=== PATIENT | male | born 1940 | race Caucasian/White ===

== ENCOUNTER → 2020-09-22 11:51 | Outpatient (CLI) | payer MEDICARE, SELFPAY ==
--- NOTE | 2020-09-22 11:56 | XR_ITS ---
PROCEDURE: XR SACROILIAC JOINT BI MIN 3V CLINICAL INDICATION: RT HIP PAIN COMPARISON: No exams were available for comparison FINDINGS: The SI joints have an unremarkable appearance. There is some mild facet hypertrophic change at L4-L5 and S1. Suture lines are present in the mid pelvic region slightly toward the left. Other findings:None. IMPRESSION: Negative SI joints. Facet arthritic changes in the lower lumbar spine Dictated by: Dle Shrestha MD 09/22/2020 12:25 Del Shrestha MD in [place] 09/22/2020 12:25
--- NOTE | 2020-09-22 11:56 | XR_ITS ---
PROCEDURE: XR HIP RT 2-3V W/PELVIS CLINICAL INDICATION: RT HIP PAIN COMPARISON: No exams were available for comparison FINDINGS: Mild osteoarthritic changes are present involving both hips. No fracture or dislocation. No lytic or blastic change. Well-circumscribed calcification noted along the left greater trochanter and may be due to old fracture or ununited ossification center IMPRESSION: Mild degenerative change, no acute finding Dictated by: Del Shrestha MD 09/22/2020 12:24 Del Shrestha MD in [facility] 09/22/2020 12:24
== END ==
PROVIDERS: PCP Internal Medicine Adolescent Medicine; Visit Provider Internal Medicine Adolescent Medicine
DX: M25.551 Pain in right hip (principal)
CPT/HCPCS: 72202; 73502

== ENCOUNTER → 2020-10-18 13:53 | Outpatient (POV) | payer MEDICARE, SELFPAY ==
[2020-10-18 14:22] VITALS: BP 164/84; PULSE 54; RESP 18; O2SAT 99; BMI 27.1
--- NOTE | 2020-10-18 15:44 | HMH.PMCON ---
Assessment and Plan (1) Osteoarthritis of right hip Status: Chronic Category: Medical Code(s): M16.11 - Unilateral primary osteoarthritis, right hip (2) Right hip pain Status: Chronic Category: Medical Code(s): M25.551 - Pain in right hip - Assessment and plan all Dx Assessment and Plan for all problems:: Patient's pain is primarily in his right hip area. He does have x-ray notable for osteoarthritic changes on the right hip. We will see him back in the clinic after his injection for reevaluation of his symptoms. We will order the patient compounding cream to apply topically to the area. We will also schedule that injection 3 weeks out. We will give him prednisone 20 mg 1 tablet p.o. twice daily for 5 days. Risks and benefits of the procedure have been explained to the patient. Patient would like to proceed with the procedure. Possible side effects of corticosteroids have been discussed with the patient. Patient has been instructed to contact the clinic with any concerns before the next appointment. Dr. Jones has reviewed this note and agrees with this plan of care. This note was dictated using voice recognition software and make contain errors or omissions. HPI - Data of Consult Patient: new to practice Consult date: 10/18/20 Requesting Physician: Dejah Palafox APRN Primary Care Provider: John Gagnon MD - Consult Narrative Reason for consult: Right hip pain History of present illness: Mr. Mast is a 80 year old male who presents today for right hip pain. Patient says his pain has been ongoing for the last 8 months. He says the pain has progressively worsened. His pain is worse after prolonged walking. He says the pain radiates from the right low back into the right hip and right lateral thigh area. It does stop at the knee. He says that he has tried anti-inflammatory gel which is giving him about 30 to 40% relief, however, has not taken all the pain away. Patient walks approximately 1 mile every day and says his pain progressively worsens after walking. He has been taking anti-inflammatories by mouth as well. He says that this has not given him much relief. He has tried and failed conservative therapies of physical therapy in the past for greater than 6 weeks and continues with home stretching. He rates his pain a 7 out of 10 today to his hip. He has used ice and heat therapies as well with no relief. CC: Dejah Palafox APRN [facility] History I have reviewed the patient's past medical history: Yes Medical History: Reports:: Hypertension *Have you ever received a pneumonia vaccine?: Yes *Have you received a flu vaccine this season?: Yes Other Surgeries: Yes: No Previous Surgery - *Social History Smoking Status: Never smoker Alcohol Intake: never *Occupational Status:: retired Household Members: family *Travel in the last 8 weeks: None Family Hx:: No significant family history Review of Systems - Review of Systems Review of Systems General: No recent weight changes, no fever, no sleep disturbances Respiratory: No cough, no shortness of air, no recurring pulmonary infections Cardiovascular/peripheral vascular: No chest pain, no palpitations, no edema, no shortness of breath Gastrointestinal: No new onset incontinence, normal bowel movements reported Genitourinary: No new onset incontinence Musculoskeletal: Right hip pain with radiation into right lateral thigh Psychiatric: Normal mood/affect Neurological: [Denies weakness in extremities], [denies balance issues] Meds Home Medications Medication Instructions Recorded Confirmed Type bisoprolol 5 1 tab PO ONCE 09/05/17 History mg-hydrochlorothiazide 6.25 mg tablet Bisoprolol/Hydrochlorothiazide 1 each PO POSTTR 10/18/20 10/18/20 History [Bisoprolol-Hctz 2.5-6.25 mg Tb] Diclofenac Sodium [Diclofenac Sod 100 gm TP DAILY 10/18/20 10/18/20 History 100gm Topical Gel] Allergies Allergy/AdvReac Ty
== END ==
PROVIDERS: PCP Internal Medicine Adolescent Medicine; Visit Provider Clinical Nurse Specialist Family Health
DX: M16.11 Unilateral primary osteoarthritis, right hip (principal); M25.551 Pain in right hip
CPT/HCPCS: 99202; G0463

== ENCOUNTER → 2021-08-18 09:22 | Outpatient (POV) | payer MEDICARE, SELFPAY ==
[2021-08-18 09:34] VITALS: BP 131/56; PULSE 62; RESP 18; TEMP 36.4; O2SAT 98; BMI 27.3
--- NOTE | 2021-08-18 11:23 | P.CONS_ITS ---
[facility] Pain Management SOAP Note Subjective:: Patient is a pleasant 81-year-old male who presents today for follow-up. We have not seen this patient since October 18, 2020. Patient currently has osteoarthritis of the right hip. Today, patient is complaining of right hip pain that radiates down to his right leg and does not cross his right knee. This is worse with any prolonged sitting or walking. He does try to walk for about a mile every day and he cannot tolerate walking for longer. He takes Advil for pain he is also prescribed [place] 10 mg 4 times a day by Dr. Gagnon. He states that these medications are helping manage his pain. He takes the [place] only when he has severe pain. When we saw this patient in September, we had recommended a right hip intra-articular injection. Patient canceled this appointment. We did prescribe him oral steroids for about a week then we did not see him again until today. He rates his pain today as 7 out of 10. [facility] #[id number] with an active morphine equivalent of 40. Review of Systems: General: No recent weight changes, no fever, no sleep disturbances Respiratory: No cough, no shortness of air, no recurring pulmonary infections Cardiovascular/peripheral vascular: No chest pain, no palpitations, no edema, no shortness of breath Gastrointestinal: No new onset incontinence, normal bowel movements reported Genitourinary: No new onset incontinence Musculoskeletal: Right hip pain Psychiatric: [Normal mood/affect] Neurological: [Denies weakness in extremities], [denies balance issues] Objective:: Physical Exam: General: Alert and oriented x3, no acute distress, pleasant and cooperative, [on room air] Lungs: Respirations even and unlabored, symmetrical chest expansion Eyes: PERRL Musculoskeletal: Limited range of motion of the bilateral hips secondary to pain, worse on the right. Negative ANGEL, +Derrick's, +compression and distraction. Neurological: Speech clear, no gross sensory deficit Assessment:: Osteoarthritis of the bilateral hips Plan:: Patient has been having worsening bilateral hip pain, worse on the right, in the last couple of months. He is currently being managed with Advil and [place] 10 mg as needed. These are prescribed by Dr. Gagnon. Patient has tried and failed other conservative therapy such as oral medication and at home exercises for greater than 6 weeks. We will schedule the patient for a bilateral intra- articular hip injections. Risks and benefits of the procedure have been explained to the patient. Patient would like to proceed with the procedure. Patient has been instructed to contact the clinic with any concerns before the next appointment. Dr. Jones has reviewed this note and agrees with this plan of care. This note was dictated using voice recognition software and make contain errors or omissions. ADDENDUM: The patient called her clinic 15 minutes after he left. He canceled his injection. We will follow-up with this patient as needed. If the patient do decide to come back, we will schedule him again for bilateral intraarticulat hip injections. [facility] History Medical History: Reports:: Hypertension *Have you ever received a pneumonia vaccine?: Yes *Have you received a flu vaccine this season?: Yes Other Surgeries: Yes: No Previous Surgery - *Social History Smoking Status: Never smoker Alcohol Intake: never *Occupational Status:: retired Household Members: family *Travel in the last 8 weeks: None Family Hx:: No significant family history
== END ==
PROVIDERS: Visit Provider Student in an Organized Health Care Education/Training Program
DX: M16.0 Bilateral primary osteoarthritis of hip (principal)
CPT/HCPCS: 99212; G0463

== ENCOUNTER 2023-07-31 13:02 | Outpatient (CLI) | payer MEDICARE, SELFPAY ==
--- NOTE | 2023-07-31 13:07 | MR_ITS ---
FINAL REPORT CLINICAL HISTORY: LBP. right hip and leg pain COMPARISON: none FINDINGS: Multiplanar MR imaging of the lumbar spine was performed without contrast. On the sagittal T2-weighted images, disc degeneration is seen throughout.There is mild rightward curvature of the lumbar spine. The vertebral alignment is normal. There are endplate changes at several levels. No bony mass is identified. The conus has an unremarkable appearance. T12-L1: There is no significant canal stenosis or neuroforaminal narrowing. L1-2: An annular bulge is present with bilateral facet arthropathy and vertebral body osteophytes. There is a right foraminal disc protrusion. Moderate bilateral neuroforaminal narrowing. L2-3: An annular bulge is present with bilateral facet arthropathy and vertebral body osteophytes. Mild bilateral neuroforaminal narrowing. Mild central canal stenosis with AP diameter of the thecal sac measuring 7 mm in diameter. L3-4: An annular bulge is present with bilateral facet arthropathy and vertebral body osteophytes. Moderate bilateral neuroforaminal narrowing. Mild central canal stenosis with AP diameter of the thecal sac measuring 8 mm in diameter. L4-5: An annular bulge is present with bilateral facet arthropathy. Severe bilateral neuroforaminal narrowing. Mild central canal stenosis with AP diameter of the thecal sac measuring 9 mm in diameter. L5-S1: An annular bulge is present with bilateral facet arthropathy and vertebral body osteophytes. Severe right and moderate left neuroforaminal narrowing. Incidental note is made of a 4.0 cm infrarenal abdominal aortic aneurism. IMPRESSION: Multilevel degenerative disc disease and spondylosis as described. Central canal stenosis at L2-3,, L3-4, and L4-5. Infrarenal 4.0 cm abdominal aortic aneurism. Reviewed, Interpreted and Dictated by Ruben Marley III, MD Transcribed by Natasha Kern Authenticated and [facility]
== END 2023-07-31 23:59 ==
LOC: RAD 13:03
PROVIDERS: PCP Internal Medicine Adolescent Medicine; Visit Provider Orthopaedic Surgery Adult Reconstructive Orthopaedic Surgery
DX: M54.50 Low back pain, unspecified (principal)
CPT/HCPCS: 72148; 76376

== ENCOUNTER 2023-09-18 15:11 | Outpatient (POV) | payer MEDICARE, SELFPAY | END 2023-09-18 23:59 | disposition home or self-care (01) | LOC: SC 15:11 | PROVIDERS: PCP Internal Medicine Adolescent Medicine; Visit Provider Dermatology | DX: Z00.00 Encounter for general adult medical examination without abnormal findings (principal) ==

== ENCOUNTER 2023-10-17 09:33 | Outpatient (CLI) | payer MEDICARE, SELFPAY ==
[2023-10-17 09:38] VITALS: BMI 27.2
--- NOTE | 2023-10-17 09:47 | PC.NURSE ---
[id number]-collected labs via venipuncture stick in left ac with butterfly needle and witness from [facility]; to notify pt with results
[2023-10-17 10:11] LABS: Reticulocyte % (Auto) 1.6 % (0.9-3.2)
[2023-10-17 10:12] LABS: Basophils % 0.7 % (0.1-2.0); Eosinophils # 0.1 K/mm3 (0.0-0.4); Eosinophils % 1.8 % (0.1-12.0); Hematocrit 36.9 % (42.0-52.0); Hemoglobin 12.7 g/dL (14.1-18.0); Lymphocytes # 1.2 K/mm3 (0.7-4.5); Lymphocytes % 19.5 % (10-50); Mean Corpuscular HGB Conc 34.4 g/dL (31.8-35.4); Mean Corpuscular Hemoglobin 33.1 pg (27.0-31.2); Mean Corpuscular Volume 96.5 fl (80-94); Mean Platelet Volume 9.1 fl (7.4-10.4); Monocytes # 1.6 K/mm3 (0.1-1.0); Platelet Count 111 K/mm3 (142-424); Red Blood Count 3.83 M/mm3 (4.60-6.20); Red Cell Distribution Width 14.3 % (11.5-17.5)
[2023-10-17 10:15] LABS: Chloride 105 mmol/L (98-107); Sodium 137 mmol/L (136-145)
[2023-10-17 10:16] LABS: Potassium 3.9 mmoL/L (3.5-5.1)
[2023-10-17 10:18] LABS: Alanine Aminotransferase 28 U/L (12-78); Alkaline Phosphatase 57 U/L (38-126); Anion Gap 10.9 mEq/L (5-15); Aspartate Amino Transferase 44 U/L (17-59); Bilirubin,Total 0.8 mg/dl (0.2-1.3); Blood Urea Nitrogen 33 mg/dl (9-20); Carbon Dioxide 25 mmol/L (22.0-30.0); Creatinine Clearance Estimated 55 mL/min (50-200); Estimated Glomerular Filt Rate 58 ml/min (>60); GFR (African American) 70 ML/MIN (>60); Iron 89 ug/dL (49-181)
[2023-10-17 10:19] LABS: Albumin Level 4.1 g/dl (3.5-5.0); Albumin/Globulin Ratio 1.4 (1.1-1.8); Calcium 9.7 mg/dl (8.4-10.2); Glucose 151 mg/dl (74-100); Total Protein,Serum 7.1 g/dl (6.3-8.2)
[2023-10-17 10:28] LABS: Total Iron Binding Capacity 244 ug/dL (261-462)
[2023-10-17 10:39] LABS: MANUAL DIFFERENTIAL MANUAL DIFFERENTIAL (MANUAL DIFF)
[2023-10-17 10:57] LABS: Ferritin 173 ng/ml (17.9-464)
[2023-10-17 11:29] LABS: Lactate Dehydrogenase 210 U/L (313-618)
[2023-10-17 12:50] LABS: Eosinophils % 2 % (0-3); Lymphocytes % 40 % (10-50); Monocytes % 7 % (2-9); Neutrophils % 51 % (42-76); Platelet Estimate Slight Decrease; RBC Morphology Normal; Total Cells Counted 100
[2023-10-18 08:46] LABS: Haptoglobin 108 mg/dL (38-329)
== END 2023-10-17 09:50 | disposition home or self-care (01) ==
LOC: LAB 09:34 → INF 09:36
PROVIDERS: PCP Internal Medicine Adolescent Medicine; Visit Provider Internal Medicine Medical Oncology
DX: D64.9 Anemia, unspecified (principal); D69.6 Thrombocytopenia, unspecified
CPT/HCPCS: 36415; 80053; 82728; 83010; 83540; 83550; 83615; 85007; 85025; 85027; 85044; 86880

== ENCOUNTER 2023-11-30 12:11 | Observation (INO) | payer MEDICARE, SELFPAY ==
[2023-11-30] VITALS (10 sets, daily range): BP systolic 134–205; BP diastolic 62–92; PULSE 53–68; RESP 16–18; TEMP 36.4–36.8; O2SAT 86–97; BMI 26.6; BMI 27.0
--- NOTE | 2023-11-30 12:16 | ECG_ITS ---
APPROVED REPORT Exam: Resting ECG HR:64 bpm ECG Measurements Heart Rate 64 AXES QRSd 94 QRS 29 QT 430 T 55 QTc 440 Conclusion Atrial fibrillation with controlled response Electronically signed by : MARVIN GORDON, 11/30/2023 16:01:32
--- NOTE | 2023-11-30 12:18 | PC.NURSE ---
PT ROOM AIR SAT 86% ON ROOM AIR, O2 APPLIED 2L/NC
--- NOTE | 2023-11-30 12:21 | PC.NURSE ---
Called RT about VBG being sent up on the pt. CR
--- NOTE | 2023-11-30 12:27 | PC.NURSE ---
Dr. Pop at [facility] for pt eval
[2023-11-30 12:38] LABS: VBG HCO3 24.8 mmol/L (23-30); VBG Oxygen Saturation 59.8 % (50-70); VBG PCO2 40.9 mmol/L (35-51); VBG Total CO2 26.1 mmol/L (23-27)
[2023-11-30 12:39] LABS: Lactate Venous 2.6 mmol/L (0.4-2.0)
--- NOTE | 2023-11-30 12:42 | XR_ITS ---
FINAL REPORT CLINICAL HISTORY: soa, hypoxemia FINDINGS: SINGLE-VIEW CHEST There is moderate cardiomegaly. Patient is status post median sternotomy.. There are mild chronic changes at the bases. There is no pneumothorax. IMPRESSION: No acute cardiopulmonary process. Reviewed, Interpreted and Dictated by Jono Boyd MD Transcribed by Shaylee Perez Authenticated and [facility]
--- NOTE | 2023-11-30 12:46 | HMH.EDCP ---
Discharge Plan Disposition Patient Disposition: Admitted Clinical Impressions Clinical Impression: CHF exacerbation, Acute hypoxemic respiratory failure, Atrial fibrillation Discharge ED Provider: Lucien Pop HPI General Chief Complaint: Shortness of Breath/Dyspnea Stated Complaint: SOA, weakness Time Seen by Provider: 11/30/23 12:17 Mode of Arrival: Ambulatory Source of Information: Patient and Spouse Limitations: No Limitations Description of Symptoms (Recalled from ER Triage Doc. by RN): PT REPORTS ONGOING SHORTNESS OF BREATH, FATIGUE, LOSS OF APPETITE AND WEAKNESS X 3 WEEKS. PT HAS HAD MULTIPLE BLOOD PRESSURE MEDICATION CHANGES. History of Present Illness HPI narrative: Please note that above description of symptoms, in this electronic medical record under categorization of recalled from ER triage doctor by RN are reflective of an initial nursing assessment, however, is not reflective of my full history and physical exam that was personally taken and clarified. Consequentially, this preceding description of symptoms, which may include the patient's categorized chief complaint in the EMR, do not reflect my personal clinical impression, and the ultimate description of history of present illness and patient stated complaints should be deferred to this section of the note. Unless stated otherwise or congruent with this section of the note, additional signs, symptoms, or incongruence should be interpreted as inaccurate with my clinical impression. Related Data Home Medications ?Medication ?Instructions ?Recorded ?Confirmed diclofenac sodium 3 % topical gel 100 g topical DAILY pain 10/18/20 11/30/23 carvedilol 12.5 mg tablet 12.5 mg PO BID 11/30/23 11/30/23 Allergies Allergy/AdvReac Type Severity Reaction Status Date / Time No Known Allergies Allergy Verified 11/30/23 15:05 [facility] Disclaimer: The information contained in this section may have been updated after the patient was seen, as this information can be updated by other users. Medical History (Updated 11/30/23 @ 16:00 by Lucien Pop MD) Hypertension Congestive heart failure Surgical History (Updated 11/30/23 @ 15:20 by Marlen Lopez RN) H/O rotator cuff surgery History of open heart surgery History of colon resection Family History (Updated 11/30/23 @ 15:16 by Marlen Lopez RN) Other No significant family history Social History (Updated 11/30/23 @ 15:17 by Marlen Lopez RN) Smoking Status: Never smoker alcohol intake: never current occupational status: retired Travel in the last 8 weeks: None household members: family ROS Obtained: Yes All systems reviewed & no additional complaints except as documented Physical Exam General General appearance: alert and in distress (Mild respiratory distress with tachypnea) Neck Neck exam: Present trachea midline Chest Chest inspection: Present normal inspection and symmetric chest wall rise Respiratory Respiratory exam: Present normal lung sounds bilaterally (Decreased in lower lung combs); Absent respiratory distress, wheezes, stridor, accessory muscle use or prolonged expiratory phase Cardiovascular Cardiovascular exam: Present regular rate, normal rhythm and other (Pulses equal and symmetric in upper and lower extremities) Extremities Exam Extremities exam: Absent edema Neurological Exam Neurological exam: Present alert, oriented X3 and CN II-XII intact Skin Skin exam: Present warm and dry; Absent cyanosis, diaphoresis or pallor HEART Score HEART Score HEART Score assessment performed?: Yes History (anamnesis): Moderately suspicious ECG: Non-specific disturbance Age: >65 years Risk factors: 3 or more risk factors Troponin: </= normal limit HEART Score: 6 Critical Care Critical Care Time Critical Care Time: No Medical Decision Making Medical Records Medical records reviewed: Yes I reviewed the patient's medical records. Meliton Inquiry Pt receiving controlled substance: No Mel[place] was queried for this patient: No Vital Signs Vital Signs: 11/30/23 12:13 11/30/23 12:16 11/30/23 12:30 Temperature 98.3 F Temperature Source Oral Pulse Rate 63 59 L Pulse Rate [Apical] 58 L Respiratory Rate 18 16 17 Blood Pressure 205/90 H 181/92 H Blood Pressure [Right Arm] 205/90 H Blood Pressure Mean [Right Arm] 128 Blood Pressure Source Blood Pressure Source [Right Arm] Automatic Cuff Blood Pressure Position Blood Pressure Position [Right Arm] Sitting 02 Sat by Pulse Oximetry 86 L 96 97 Oxygen Delivery Method Room Air Nasal Cannula Nasal Cannula Oxygen Flow Rate (LPM) 2 2 11/30/23 13:00 11/30/23 13:31 11/30/23 14:02 Temperature Temperature Source Pulse Rate 54 L 68 53 L Pulse Rate [Apical] Respiratory Rate 17 Blood Pressure 162/74 H 164/86 H 137/92 H Blood Pressure [Right Arm] Blood Pressure Mean [Right Arm] Blood Pressure Source Blood Pressure Source [Right Arm] Blood Pressure Position Blood Pressure Position [Right Arm] 02 Sat by Pulse Oximetry 95 96 96 Oxygen Delivery Method Nasal Cannula Nasal Cannula Oxygen Flow Rate (LPM) 2 2 11/30/23 14:42 Temperature 97.9 F Temperature Source Oral Pulse Rate 56 L Pulse Rate [Apical] Respiratory Rate 18 Blood Pressure 134/62 Blood Pressure [Right Arm] Blood Pressure Mean [Right Arm] Blood Pressure Source Automatic Cuff Blood Pressure Source [Right Arm] Blood Pressure Position Sitting Blood Pressure Position [Right Arm] 02 Sat by Pulse Oximetry Oxygen Delivery Method Nasal Cannula Oxygen Flow Rate (LPM) Lab Data Labs: Lab Results 11/30/23 12:15: WBC 8.1, RBC 3.72 L, Hgb 12.4 L, Hct 37.3 L, MCV 100.2 H, MCH 33.4 H, MCHC 33.3, RDW 15.4, Plt Count 92 L, MPV 9.4, Neut % (Auto) 61.7, Lymph % (Auto) 17.0, [place] % (Auto) 19.6 H, Eos % (Auto) 1.1, Baso % (Auto) 0.5, Neut # (Auto) 5.0, Lymph # (Auto) 1.4, [place] # (Auto) 1.6 H, Eos # (Auto) 0.1, Baso # (Auto) 0.0, D-Dimer 1.07 H, VBG pH 7.40, VBG pCO2 40.9, VBG pO2 33.0, VBG HCO3 24.8, VBG Total CO2 26.1, VBG O2 Saturation 59.8, VBG Base Excess 0.0, VBG Lactic Acid 2.6 H, Sodium 140, Potassium 4.2, Chloride 107, Carbon Dioxide 24, Anion Gap 13.2, BUN 25 H, Creatinine 1.00, Estimated Creat Clear 65, Estimated GFR 72, Est GFR ( Amer) 87, Glucose 113 H, Calcium 9.3, Total Bilirubin 2.0 H, AST 40, ALT 24, Alkaline Phosphatase 77, Troponin I 0.01, NT-Pro-B Natriuret Pep 3450 H, Total Protein 7.0, Albumin 4.0, Globulin 3.0, Albumin/Globulin Ratio 1.3, TSH 2.95, Thyroxine (T4) 9.1 11/30/23 12:57: SARS-CoV-2 (PCR) Not detected, Influenza A Untype (PCR) Not detected, Influenza Type B (PCR) Not detected 11/30/23 12:15 11/30/23 12:15 Response Orders (Tests/Meds): ED MEDICATIONS Generic Name Dose Route Start Last Admin Trade Name Sharon PRN Reason Stop Dose Admin Bumetanide 1 mg 11/30/23 16:00 11/30/23 15:47 Bumetanide 1mg/4ml Vial IV 12/30/23 15:59 1 mg BIDL SERAFIN Administration Discontinued Medications Generic Name Dose Route Start Last Admin Trade Name Sharon PRN Reason Stop Dose Admin Furosemide 80 mg 11/30/23 14:00 11/30/23 14:02 Furosemide 100mg/10ml Vial IV 11/30/23 14:01 80 mg ONCE ONE Administration Iopamidol 70 ml 11/30/23 13:18 11/30/23 13:20 Iopamidol-370 (76%);100ml Bottle IV 11/30/23 13:19 70 ml ONCE ONE Administration Sodium Chloride 10 ml 11/30/23 13:18 11/30/23 13:20 Sodium Chloride 0.9% 10ml Syr (Rad Only) IV 11/30/23 13:19 10 ml ONCE ONE Administration Sodium Chloride 50 ml 11/30/23 13:18 11/30/23 13:20 0.9 % Sodium Chloride 50 Ml Vial IV 11/30/23 13:19 50 ml ONCE ONE Administration ORDERS Category Date Time Status CT angio chest PE protocol Stat Cat Scan 11/30/23 13:03 Completed POCUS Point of Care (ER Only) Stat Exams 11/30/23 12:42 Completed XR chest portable Stat Exams 11/30/23 12:42 Completed Complete Blood Count Auto Diff AMLAB Lab 12/01/23 06:00 Ordered Complete Blood Count Auto Diff Stat Lab 11/30/23 12:15 Completed Comprehensive Metabolic Panel AMLAB Lab 12/01/23 06:00 Ordered Comprehensive Metabolic Panel Stat Lab 11/30/23 12:15 Completed D-Dimer Stat Lab 11/30/23 12:15 Completed Magnesium AMLAB Lab 12/01/23 06:00 Ordered NT Pro Brain Natriuretic Pep. Stat Lab 11/30/23 12:15 Completed Rapid PCR Covid and Flu A/B Stat Lab 11/30/23 12:57 Completed T4 (Thyroxine) Stat Lab 11/30/23 12:15 Completed TSH [Thyroid Stimulating Hormone] Stat Lab 11/30/23 12:15 Completed Troponin I Q3H Lab 11/30/23 15:45 Received Troponin I Q3H Lab 11/30/23 18:45 Ordered Troponin I Stat Lab 11/30/23 12:15 Completed Venous Blood Gas Routine RT 11/30/23 12:15 Completed MDM Narrative Medical Decision Narrative: This is an 83-year-old male history of hypertension, hyperlipidemia, AAA, CAD status post CABG presenting with shortness of breath. Patient states he has been short of breath with minimal exertion for the past couple of weeks. Was started on a new blood pressure medication (lisinopril) a couple weeks ago, it did not agree with me, so he was started on carvedilol. Patient states that he has been feeling weak, short of breath with minimal exertion since that time. No PND orthopnea, but he does have intermittent lower extremity swelling. No cough, fevers, chills, chest pain, neurologic deficits, or any other concerns. History was obtained via conversation with patient and . On arrival, patient hemodynamically stable, alert, oriented x4, appropriate, GCS 15, moving all extremities spontaneously, pupils equal and reactive to light. Full physical exam performed and significant for very well-appearing male who is in mild respiratory distress. He is tachypneic. Initially hypoxemic on arrival but nontachycardic, likely secondary to beta-blockade. Lungs are clear to auscultation anterior and posterior bilaterally, but decreased in lower lung field. No lower extremity edema, pulses equal and symmetric. differential includes CHF, COPD, pneumothorax, bronchitis, PE, among others. Patient was given 80 mg IV Lasix for symptomatic management and correction of underlying abnormalities. Patient placed on continuous cardiac monitoring and continuous pulse ox with initial blood pressure 205/90, heart rate 58, saturation 86% on room air, 90% on 2 L nasal cannula, 96% on 4 L nasal cannula. Independent interpretation of EKG shows atrial fibrillation slow ventricular response 64 beats a minute. No ST or T wave changes concerning for acute ischemia. QRS 94, QTc 440. Workup independently interpreted and significant for Nonactionable CBC. VBG nonactionable as well. Dimer elevated at 1.1. Chemistry nonactionable, troponin negative, BNP newly elevated at 3400. COVID swab negative. On independent interpretation of imaging, bilateral pleural effusions without obvious focal airspace disease. Given elevated dimer, CT PE was ordered. CT PE without obvious PE, but patient does have bilateral pleural effusions and pulmonary edema. Patient also has new, undiagnosed, unknown 5.5 cm thoracic aortic aneurysm. See radiology read for full review of final results. Heart score 6. [id number] score 6. On reevaluation, patient urinating quite a bit, hypertension largely resolved and feeling a little better. Still requiring oxygen. This most consistent with new onset heart failure with hypoxemic respiratory failure. New onset A-fib as well. Because patient high risk for clinical decompensation, deemed appropriate for inpatient admission. Results were relayed to patient who voiced understanding and patient was agreeable to inpatient admission and management. Patient was admitted to the hospital for further definitive management. [employer] disclaimer Much of this encounter note is an electronic robotic toy inventor spoken language to printed text. Electronic robotic toy inventor of the spoken language may permit errors. Although I have reviewed the note, some errors may still exist.
[2023-11-30 12:51] LABS: Basophils % 0.5 % (0.1-2.0); Eosinophils # 0.1 K/mm3 (0.0-0.4); Eosinophils % 1.1 % (0.1-12.0); Hematocrit 37.3 % (42.0-52.0); Hemoglobin 12.4 g/dL (14.1-18.0); Lymphocytes # 1.4 K/mm3 (0.7-4.5); Mean Corpuscular HGB Conc 33.3 g/dL (31.8-35.4); Mean Corpuscular Hemoglobin 33.4 pg (27.0-31.2); Mean Corpuscular Volume 100.2 fl (80-94); Mean Platelet Volume 9.4 fl (7.4-10.4); Monocytes # 1.6 K/mm3 (0.1-1.0); Monocytes % 19.6 % (1.7-9.3); Neutrophils % 61.7 % (37.0-80.0); Platelet Count 92 K/mm3 (142-424); Red Blood Count 3.72 M/mm3 (4.60-6.20); Red Cell Distribution Width 15.4 % (11.5-17.5); White Blood Count 8.1 K/mm3 (4.8-10.8)
[2023-11-30 12:56] LABS: Alanine Aminotransferase 24 U/L (12-78); Albumin/Globulin Ratio 1.3 (1.1-1.8); Alkaline Phosphatase 77 U/L (38-126); Anion Gap 13.2 mEq/L (5-15); Aspartate Amino Transferase 40 U/L (17-59); Blood Urea Nitrogen 25 mg/dl (9-20); Calcium 9.3 mg/dl (8.4-10.2); Carbon Dioxide 24 mmol/L (22.0-30.0); Chloride 107 mmol/L (98-107); Creatinine Clearance Estimated 65 mL/min (50-200); Estimated Glomerular Filt Rate 72 ml/min (>60); GFR (African American) 87 ML/MIN (>60); Glucose 113 mg/dl (74-100); Potassium 4.2 mmoL/L (3.5-5.1); Sodium 140 mmol/L (136-145)
[2023-11-30 13:00] LABS: D-Dimer 1.07 ug/mL (0.0-0.5)
[2023-11-30 13:01] LABS: Coronavirus 19, PCR Not Detected (NotDetected); Influenza A, PCR Not Detected (NotDetected); Influenza B, PCR Not Detected (NotDetected)
--- NOTE | 2023-11-30 13:03 | CT_ITS ---
FINAL REPORT TECHNIQUE: The patient was injected with IV contrast. Axial images were obtained through the chest in a PE protocol. 3-D reconstruction images were also performed. Individualized dose reduction techniques using automated exposure control or adjustment of the MA and/or KV according to patient's size were employed. CLINICAL HISTORY: hypoxemia, dimer FINDINGS: Mediastinal vasculature is adequately opacified. No pulmonary artery filling defects are identified to suggest PE. There is no aortic dissection. There is no axillary adenopathy. There is moderate mediastinal adenopathy. Individual nodes measure up to 1.6 cm. The heart size is normal. There is no pericardial effusion. Small to moderate right and minimal left effusions are identified. Limited images of the upper abdomen are unremarkable. There are patchy ground-glass opacities in both upper and lower lobes, probably due to multifocal pneumonia. IMPRESSION: No evidence of pulmonary embolism or dissection. Ground-glass opacities and bilateral effusions, probably due to acute pneumonitis. Nonspecific mediastinal adenopathy, probably reactive. Reviewed, Interpreted and Dictated by Jono Boyd MD Transcribed by Shaylee Perez Authenticated and [facility]
[2023-11-30 13:09] LABS: NT Pro Brain Natriuretic Pep. 3450 pg/mL (0-450)
[2023-11-30 13:10] LABS: Troponin I 0.01 ng/ml (0.00-0.034)
[2023-11-30 13:14] LABS: T4 (Thyroxine) 9.1 ug/dl (5.53-11.0)
[2023-11-30] MEDS: SODIUM CHLORIDE 0.9% 10ML SYR (RAD ONLY) 10 ML IV (13:20)
[2023-11-30] MEDS: 0.9 % SODIUM CHLORIDE 50 ML VIAL IV (13:20)
[2023-11-30] MEDS: IOPAMIDOL-370 (76%);100ML BOTTLE 70 ML IV (13:20)
[2023-11-30 13:28] LABS: Thyroid Stimulating Hormone 2.95 uIU/mL (0.465-4.68)
[2023-11-30] MEDS: FUROSEMIDE 100MG/10ML VIAL 80 MG IV (14:02)
--- NOTE | 2023-11-30 14:04 | EXP.HP ---
History of Present Illness *Admission Date: 11/30/23 *Reason for visit:: Shortness of breath *History of present illness: Mr. Lewis is an 83-year-old male with history of hypertension, previous history of CABG 20 years ago, history of aortic aneurysm, and hyperlipidemia. He presented to the ER because of shortness of breath with exertion and orthopnea over the past few weeks. Most prominently it is worsened over the past week. Was having weakness from lisinopril that was in combo with HCTZ. This medication was stopped and he was started on carvedilol twice daily. He has felt somewhat better but still weak. Denies any chest pain. No fever or productive cough. No neurologic deficits. Has had intermittent lower extremity swelling. On arrival to the ER, found to be hypoxic necessitating supplemental oxygen. Workup concerning for CHF with BNP of 3400 and chest imaging showing effusions. Medicine consulted for further management and admission with diuresis On arrival to the floor, patient states he is feeling little bit better but is still necessitating 2 L oxygen for appropriate saturations. Alert and oriented x 4.. Family at bedside. Discussed plan, stated he would be going home tomorrow because he is feeling better. Informed him we would need to reevaluate tomorrow, he restated he would be going home, if he is feeling better. [facility] Disclaimer: The information contained in this section may have been updated after the patient was seen, as this information can be updated by other users. Medical History (Updated 11/30/23 @ 18:11 by Jonnathan Combs MD) Hypertension Congestive heart failure Surgical History (Updated 11/30/23 @ 18:19 by Jonnathan Combs MD) History of coronary artery bypass graft H/O rotator cuff surgery History of open heart surgery History of colon resection Family History Other No significant family history Social History Smoking Status: Never smoker alcohol intake: never current occupational status: retired Travel in the last 8 weeks: None household members: family Review of Systems Review of Systems Review of systems (narrative): 14 point review of systems performed, pertinent positives and negatives as per HPI Meds Home Medications and Allergies Home Medications ?Medication ?Instructions ?Recorded ?Confirmed ?Type diclofenac sodium 3 % topical gel 100 g topical DAILY pain 10/18/20 11/30/23 History carvedilol 12.5 mg tablet 12.5 mg PO BID 11/30/23 11/30/23 History New Prescriptions to Start Prescriptions: Allergies Allergy/AdvReac Type Severity Reaction Status Date / Time No Known Allergies Allergy Verified 11/30/23 15:05 Exam Data for Last 24 hours Vital signs and Labs for Last 24 Hours: Temp Pulse Resp BP Pulse Ox O2 Del Method O2 Flow Rate 98.3 F 68 17 164/86 H 96 Nasal Cannula 2 11/30/23 12:13 11/30/23 13:31 11/30/23 13:00 11/30/23 13:31 11/30/23 13:31 11/30/23 13:31 11/30/23 13:31 Laboratory Results - last 24 hr 11/30/23 12:15: WBC 8.1, RBC 3.72 L, Hgb 12.4 L, Hct 37.3 L, MCV 100.2 H, MCH 33.4 H, MCHC 33.3, RDW 15.4, Plt Count 92 L, MPV 9.4, Neut % (Auto) 61.7, Lymph % (Auto) 17.0, [place] % (Auto) 19.6 H, Eos % (Auto) 1.1, Baso % (Auto) 0.5, Neut # (Auto) 5.0, Lymph # (Auto) 1.4, [place] # (Auto) 1.6 H, Eos # (Auto) 0.1, Baso # (Auto) 0.0, D-Dimer 1.07 H, VBG pH 7.40, VBG pCO2 40.9, VBG pO2 33.0, VBG HCO3 24.8, VBG Total CO2 26.1, VBG O2 Saturation 59.8, VBG Base Excess 0.0, VBG Lactic Acid 2.6 H, Sodium 140, Potassium 4.2, Chloride 107, Carbon Dioxide 24, Anion Gap 13.2, BUN 25 H, Creatinine 1.00, Estimated Creat Clear 65, Estimated GFR 72, Est GFR ( Amer) 87, Glucose 113 H, Calcium 9.3, Total Bilirubin 2.0 H, AST 40, ALT 24, Alkaline Phosphatase 77, Troponin I 0.01, NT-Pro-B Natriuret Pep 3450 H, Total Protein 7.0, Albumin 4.0, Globulin 3.0, Albumin/Globulin Ratio 1.3, Thyroxine (T4) 9.1 11/30/23 12:57: SARS-CoV-2 (PCR) Not detected, Influenza A Untype (PCR) Not detected, Influenza Type B (PCR) Not detected I & O for Last 24 hours: Intake & Output 11/27/23 11/28/23 11/29/23 11/30/23 23:59 23:59 23:59 23:59 Weight 79.379 kg Constitutional Constitutional: no acute distress, average body habitus and cooperative *Routine HEENT Exam Head: Present normocephalic Eye: Present EOMI and PERRL ENT: Present mucous membranes moist *Routine Neck Exam Neck: Present supple; Absent lymphadenopathy *Routine Respiratory Exam Respiratory: Present prolonged expiratory phase and crackles; Absent rhonchi or wheezes *Routine Cardiovascular Exam Cardiovascular: Present RRR *Routine Abdominal Exam Abdominal: Present soft and normoactive bowel sounds; Absent tenderness *Routine Rectal Exam Rectal:: deferred *Routine Genitalia Exam Genitalia:: deferred *Routine Extremities Exam Extremities: Absent cyanosis, clubbing or edema *Routine Skin Exam Skin: Present warm; Absent rash *Routine Neurological Exam Neurological: Present alert, oriented X3 and moving all extremities; Absent altered mental status Assessment and Plan *Assessment and plan (1) Acute hypoxemic respiratory failure: Status: Acute Category: Medical Code(s): J96.01 - Acute respiratory failure with hypoxia (2) CHF exacerbation: Status: Acute Category: Medical Code(s): I50.9 - Heart failure, unspecified (3) Hypertension: Status: Acute Category: Medical Code(s): I10 - Essential (primary) hypertension (4) History of coronary artery bypass graft: Status: Chronic Category: Surgical Code(s): Z95.1 - Presence of aortocoronary bypass graft Plan 83-year-old male who presents with worsening shortness of breath. Found to have CHF exacerbation with BNP of 3500, new oxygen requirement of 4 L in the ER. Initiated on diuresis. Discussed case with ER physician, request admission for diuretics and further management of CHF exacerbation and acute hypoxemic respiratory failure. I agreed to admit for further management. Responding to diuretics but still having oxygen requirement. Family at bedside. Problems addressed as follows: Acute hypoxemic respiratory failure secondary to CHF exacerbation History of CABG Hypertension -BNP elevated at 3400, electrolytes stable with potassium 4.2, kidney function normal with BUN 25, creatinine 1.0. Initiated on diuretics with Lasix 40 mg IV once in the ER. Responding well. -Supplemental oxygen as needed for goal sats greater 90%. Currently on 2 L -Repeat Bumex 1 mg twice daily tomorrow. -CBC, CMP, magnesium ordered for the morning -EKG with concern for possible rate controlled A-fib. This would be a new diagnosis. Will repeat EKG in the morning after diuresis. Patient not on any anticoagulation, will cover with therapeutic Lovenox for the time being. Further discussion pending EKG in the morning -Continue carvedilol 12.5 mg twice daily -Risk for decompensation given previous heart surgery and CHF exacerbation. Necessitating close monitoring of electrolytes with diuresis -Per my review of patient's chest x-ray, has effusion and pulmonary edema Full code Lovenox 1 mg/kg twice daily Cardiac diet
--- NOTE | 2023-11-30 14:22 | PC.NURSE ---
HS aware of admission
--- NOTE | 2023-11-30 14:48 | PC.NURSE ---
REPORT CALLED TO [place] FRANCO
--- NOTE | 2023-11-30 14:55 | PC.NURSE ---
arrived to floor by w/c from ED
[2023-11-30] MEDS: BUMETANIDE 1MG/4ML VIAL 1 MG IV (15:47)
[2023-11-30 16:15] LABS: Troponin I 0.02 ng/ml (0.00-0.034)
[2023-11-30 16:34] LABS: Reflex Lactic Add Lactic Reflex
[2023-11-30 17:12] LABS: Lactic Acid Follow Up (RFLX 1) 1.3 mmol/L (0.7-2.1)
[2023-11-30] MEDS: ENOXAPARIN 100MG/ML SYRINGE 80 MG SQ (18:56)
[2023-11-30 18:59] LABS: Troponin I 0.02 ng/ml (0.00-0.034)
[2023-11-30] MEDS: CARVEDILOL 12.5MG TABLET 12.5 MG PO (20:22)
[2023-12-01] VITALS: PULSE 60
[2023-12-01 04:00] VITALS: PULSE 50; BMI 26.9
--- NOTE | 2023-12-01 04:47 | PC.NURSE ---
Alert and oriented. 2L NC, O2 sat >90%. Patient has had no complaints throughout the night. Uses urinal, with great output. No edema noted. Lung sounds clear. Call light in reach.
[2023-12-01 05:36] VITALS: BP 113/60; PULSE 61; RESP 18; TEMP 36.7; O2SAT 95
[2023-12-01] MEDS: ENOXAPARIN 100MG/ML SYRINGE 80 MG SQ (06:25)
[2023-12-01 07:26] LABS: Basophils % 0.2 % (0.1-2.0); Eosinophils # 0.1 K/mm3 (0.0-0.4); Eosinophils % 1.1 % (0.1-12.0); Hematocrit 37.1 % (42.0-52.0); Hemoglobin 12.1 g/dL (14.1-18.0); Lymphocytes # 1.3 K/mm3 (0.7-4.5); Lymphocytes % 14.9 % (10-50); Mean Corpuscular HGB Conc 32.6 g/dL (31.8-35.4); Mean Corpuscular Hemoglobin 32.9 pg (27.0-31.2); Mean Corpuscular Volume 100.9 fl (80-94); Mean Platelet Volume 9.6 fl (7.4-10.4); Monocytes # 2.1 K/mm3 (0.1-1.0); Monocytes % 25.5 % (1.7-9.3); Neutrophils # 4.8 K/mm3 (1.8-7.8); Neutrophils % 58.3 % (37.0-80.0); Platelet Count 99 K/mm3 (142-424); Red Blood Count 3.68 M/mm3 (4.60-6.20); Red Cell Distribution Width 15.5 % (11.5-17.5); White Blood Count 8.3 K/mm3 (4.8-10.8)
[2023-12-01 07:30] LABS: Potassium 3.5 mmoL/L (3.5-5.1)
[2023-12-01 07:32] LABS: Aspartate Amino Transferase 33 U/L (17-59); Bilirubin,Total 2.2 mg/dl (0.2-1.3); Blood Urea Nitrogen 28 mg/dl (9-20); Carbon Dioxide 28 mmol/L (22.0-30.0); Creatinine Clearance Estimated 55 mL/min (50-200); Estimated Glomerular Filt Rate 58 ml/min (>60); GFR (African American) 70 ML/MIN (>60)
[2023-12-01 07:33] LABS: Calcium 8.8 mg/dl (8.4-10.2); Magnesium 1.9 mg/dl (1.6-2.3)
[2023-12-01 07:38] LABS: MANUAL DIFFERENTIAL MANUAL DIFFERENTIAL (MANUAL DIFF)
--- NOTE | 2023-12-01 07:42 | ECG_ITS ---
APPROVED REPORT Exam: Resting ECG HR:53 bpm ECG Measurements Heart Rate 53 AXES QRSd 90 QRS 17 QT 528 T 256 QTc 510 Conclusion ATRIAL FIBRILLATION WITH SLOW VENTRICULAR RESPONSE ST DEVIATION AND MODERATE T-WAVE ABNORMALITY, CONSIDER ANTEROLATERAL ISCHEMIA [-0.1+ mV T-WAVE IN V3-V6] ABNORMAL ECG UNCONFIRMED REPORT Electronically signed by : ELMER FRANK, 12/02/2023 06:49:48
[2023-12-01 07:48] LABS: Anion Gap 10.5 mEq/L (5-15); Chloride 104 mmol/L (98-107); Sodium 139 mmol/L (136-145)
[2023-12-01 07:51] LABS: Alanine Aminotransferase 21 U/L (12-78); Albumin/Globulin Ratio 1.5 (1.1-1.8); Alkaline Phosphatase 66 U/L (38-126); Globulin 2.7 g/dL (1.3-3.2); Total Protein,Serum 6.7 g/dl (6.3-8.2)
[2023-12-01 07:52] LABS: Glucose 96 mg/dl (74-100)
[2023-12-01 08:00] VITALS: BP 137/65; PULSE 46; PULSE 60; RESP 20; TEMP 36.5; O2SAT 93
[2023-12-01 09:05] LABS: Eosinophils % 3 % (0-3); Lymphocytes % 15 % (10-50); Macrocytosis 1+; Monocytes % 26 % (2-9); Neutrophils % 56 % (42-76); Platelet Estimate Slight Decrease; Total Cells Counted 100
--- NOTE | 2023-12-01 09:36 | P.DS_ITS ---
General Admission date:: 11/30/23 Discharge date: 12/01/23 HPI HPI HPI: Mr. Lewis is an 83-year-old male with history of hypertension, previous history of CABG 20 years ago, history of aortic aneurysm, and hyperlipidemia. He presented to the ER because of shortness of breath with exertion and orthopnea over the past few weeks. Most prominently it is worsened over the past week. Was having weakness from lisinopril that was in combo with HCTZ. This medication was stopped and he was started on carvedilol twice daily. He has felt somewhat better but still weak. Denies any chest pain. No fever or produc tive cough. No neurologic deficits. Has had intermittent lower extremity swelling. On arrival to the ER, found to be hypoxic necessitating supplemental oxygen. Workup concerning for CHF with BNP of 3400 and chest imaging showing effusions. Medicine consulted for further management and admission with diuresis On arrival to the floor, patient states he is feeling little bit better but is still necessitating 2 L oxygen for appropriate saturations. Alert and oriented x 4.. Family at bedside. Discussed plan, stated he would be going home tomorrow because he is feeling better. Informed him we would need to reevaluate tomorrow, he restated he would be going home, if he is feeling better. Hospital Course Hospital Course Hospital Course: 83-year-old male who presents with worsening shortness of breath. Found to have CHF exacerbation with BNP of 3500, new oxygen requirement of 4 L in the ER. Initiated on diuresis. Discussed case with ER physician, request admission for diuretics and further management of CHF exacerbation and acute hypoxemic respiratory failure. I agreed to admit for further management. Initiated on diuretics, received 80 mg Lasix x 1. Responded very well with output of over 4 L. Weaned to room air by morning. Given improvement, stable to discharge home but needs close follow-up for additional findings on presentation. Problems addressed as follows: Acute hypoxemic respiratory failure secondary to CHF exacerbation History of CABG Hypertension -BNP elevated at 3400, electrolytes stable with potassium 4.2, kidney function normal with BUN 25, creatinine 1.0. Initiated on diuretics with Lasix IV. Responded well. Put out over 4 L of urine, negative volume status on admission. Initially on 2 L oxygen, weaned to room air by morning. Received an additional 1 mg dose of Bumex morning of discharge. Breathing much better and more comfortably. Electrolytes stable with potassium of 4.2. Kidney function normal with BUN 25, creatinine 1. Given clinical improvement, stable to discharge home. Will add diuretic with HCTZ to his regimen to maintain volume status at discharge. Continue carvedilol for blood pressure and rate control. Patient noted to have rate controlled A-fib. He reports he thinks he has had an arrhythmia before. Is on 81 mg aspirin. Discussed risks and benefits of anticoagulation. Shared decision to defer initiation of oral anticoagulation to PCP. Would benefit from consideration of DOAC. EKG on morning of discharge showed rate controlled A-fib [id number] score 5, 7-10% risk of stroke per year. 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 Personally measured aortic root at 5 cm. Needs reevaluation with outpatient echo and close follow-up. Recommend discussion with PCP about referral for evaluation of surgical repair and close monitoring. Recommend close follow-up with PCP within the next 2 to 3 days. Total time spent on discharge 35 minutes in counseling, documentation, chart review, and direct care with patient. Exam Data for Last 24 hours Vital signs and Labs for Last 24 Hours: Temp Pulse Resp BP Pulse Ox O2 Del Method O2 Flow Rate 97.7 F 46 L 20 137/65 93 L Room Air 2 12/01/23 08:00 12/01/23 08:00 12/01/23 08:00 12/01/23 08:00 12/01/23 08:00 12/01/23 08:00 12/01/23 05:36 Laboratory Results - last 24 hr 11/30/23 12:15: WBC 8.1, RBC 3.72 L, Hgb 12.4 L, Hct 37.3 L, MCV 100.2 H, MCH 33.4 H, MCHC 33.3, RDW 15.4, Plt Count 92 L, MPV 9.4, Neut % (Auto) 61.7, Lymph % (Auto) 17.0, [place] % (Auto) 19.6 H, Eos % (Auto) 1.1, Baso % (Auto) 0.5, Neut # (Auto) 5.0, Lymph # (Auto) 1.4, [place] # (Auto) 1.6 H, Eos # (Auto) 0.1, Baso # (Auto) 0.0, D-Dimer 1.07 H, VBG pH 7.40, VBG pCO2 40.9, VBG pO2 33.0, VBG HCO3 24.8, VBG Total CO2 26.1, VBG O2 Saturation 59.8, VBG Base Excess 0.0, VBG Lactic Acid 2.6 H, Sodium 140, Potassium 4.2, Chloride 107, Carbon Dioxide 24, Anion Gap 13.2, BUN 25 H, Creatinine 1.00, Estimated Creat Clear 65, Estimated GFR 72, Est GFR ( Amer) 87, Glucose 113 H, Calcium 9.3, Total Bilirubin 2.0 H, AST 40, ALT 24, Alkaline Phosphatase 77, Troponin I 0.01, NT-Pro-B Natriuret Pep 3450 H, Total Protein 7.0, Albumin 4.0, Globulin 3.0, Albumin/Globulin Ratio 1.3, TSH 2.95, Thyroxine (T4) 9.1 11/30/23 12:57: SARS-CoV-2 (PCR) Not detected, Influenza A Untype (PCR) Not detected, Influenza Type B (PCR) Not detected 11/30/23 15:45: Troponin I 0.02 11/30/23 16:55: Lactate 1.3 11/30/23 18:30: Troponin I 0.02 12/01/23 06:20: WBC 8.3, RBC 3.68 L, Hgb 12.1 L, Hct 37.1 L, MCV 100.9 H, MCH 32.9 H, MCHC 32.6, RDW 15.5, Plt Count 99 L, MPV 9.6, Neut % (Auto) 58.3, Lymph % (Auto) 14.9, [place] % (Auto) 25.5 H D, Eos % (Auto) 1.1, Baso % (Auto) 0.2, Neut # (Auto) 4.8, Lymph # (Auto) 1.3, [place] # (Auto) 2.1 H, Eos # (Auto) 0.1, Baso # (Auto) 0.0, Total Counted 100, Neutrophils % (Manual) 56, Lymphocytes % (Manual) 15, Monocytes % (Manual) 26 H, Eosinophils % (Manual) 3, Platelet Estimate Slight decrease, Macrocytosis 1+, Sodium 139, Potassium 3.5, Chloride 104, Carbon Dioxide 28, Anion Gap 10.5, BUN 28 H, Creatinine 1.20, Estimated Creat Clear 55, Estimated GFR 58 L, Est GFR ( Amer) 70, Glucose 96, Calcium 8.8, Magnesium 1.9, Total Bilirubin 2.2 H, AST 33, ALT 21, Alkaline Phosphatase 66, Total Protein 6.7, Albumin 4.0, Globulin 2.7, Albumin/Globulin Ratio 1.5 I & O for Last 24 hours: Intake & Output 11/28/23 11/29/23 11/30/23 12/01/23 23:59 23:59 23:59 23:59 Intake Total 400 / 700 535 / 535 Output Total 3550 / 3800 1175 / 1175 Balance -3150 / -3100 -640 / -640 Weight 80.739 kg 80.7 kg Constitutional Constitutional: no acute distress, average body habitus and cooperative *Routine HEENT Exam Head: Present normocephalic Eye: Present EOMI and PERRL ENT: Present mucous membranes moist *Routine Neck Exam Neck: Present supple; Absent lymphadenopathy *Routine Respiratory Exam Respiratory: Present CTA bilaterally; Absent rhonchi, wheezes or crackles *Routine Cardiovascular Exam Cardiovascular: Present irregularly irregular Comments: Normal rate *Routine Abdominal Exam Abdominal: Present soft and normoactive bowel sounds; Absent tenderness *Routine Rectal Exam Patient deferred: visual exam *Routine Exam Patient deferred: penile exam *Routine Extremities Exam Extremities: Absent cyanosis, clubbing or edema *Routine Skin Exam Skin: Present warm; Absent rash *Routine Neurological Exam Neurological: Present alert, oriented X3 and moving all extremities; Absent altered mental status Results Data Completed and Pending Labs on day of discharge: Labs from last 24 hours 12/01/23 11/30/23 11/30/23 06:20 18:30 16:55 WBC 8.3 RBC 3.68 L Hgb 12.1 L Hct 37.1 L MCV 100.9 H MCH 32.9 H MCHC 32.6 RDW 15.5 Plt Count 99 L MPV 9.6 Neut % (Auto) 58.3 Lymph % (Auto) 14.9 [place] % (Auto) 25.5 H D Eos % (Auto) 1.1 Baso % (Auto) 0.2 Neut # (Auto) 4.8 Lymph # (Auto) 1.3 [place] # (Auto) 2.1 H Eos # (Auto) 0.1 Baso # (Auto) 0.0 Total Counted 100 Neutrophils % (Manual) 56 Lymphocytes % (Manual) 15 Monocytes % (Manual) 26 H Eosinophils % (Manual) 3 Platelet Estimate Slight decrease Macrocytosis 1+ D-Dimer VBG pH VBG pCO2 VBG pO2 VBG HCO3 VBG Total CO2 VBG O2 Saturation VBG Base Excess VBG Lactic Acid Sodium 139 Potassium 3.5 Chloride 104 Carbon Dioxide 28 Anion Gap 10.5 BUN 28 H Creatinine 1.20 Estimated Creat Clear 55 Estimated GFR 58 L Est GFR ( Amer) 70 Glucose 96 Lactate 1.3 Calcium 8.8 Magnesium 1.9 Total Bilirubin 2.2 H AST 33 ALT 21 Alkaline Phosphatase 66 Troponin I 0.02 NT-Pro-B Natriuret Pep Total Protein 6.7 Albumin 4.0 Globulin 2.7 Albumin/Globulin Ratio 1.5 TSH Thyroxine (T4) SARS-CoV-2 (PCR) Influenza A Untype (PCR) Influenza Type B (PCR) 11/30/23 11/30/23 11/30/23 15:45 12:57 12:15 WBC 8.1 RBC 3.72 L Hgb 12.4 L Hct 37.3 L MCV 100.2 H MCH 33.4 H MCHC 33.3 RDW 15.4 Plt Count 92 L MPV 9.4 Neut % (Auto) 61.7 Lymph % (Auto) 17.0 [place] % (Auto) 19.6 H Eos % (Auto) 1.1 Baso % (Auto) 0.5 Neut # (Auto) 5.0 Lymph # (Auto) 1.4 [place] # (Auto) 1.6 H Eos # (Auto) 0.1 Baso # (Auto) 0.0 Total Counted Neutrophils % (Manual) Lymphocytes % (Manual) Monocytes % (Manual) Eosinophils % (Manual) Platelet Estimate Macrocytosis D-Dimer 1.07 H VBG pH 7.40 VBG pCO2 40.9 VBG pO2 33.0 VBG HCO3 24.8 VBG Total CO2 26.1 VBG O2 Saturation 59.8 VBG Base Excess 0.0 VBG Lactic Acid 2.6 H Sodium 140 Potassium 4.2 Chloride 107 Carbon Dioxide 24 Anion Gap 13.2 BUN 25 H Creatinine 1.00 Estimated Creat Clear 65 Estimated GFR 72 Est GFR ( Amer) 87 Glucose 113 H Lactate Calcium 9.3 Magnesium Total Bilirubin 2.0 H AST 40 ALT 24 Alkaline Phosphatase 77 Troponin I 0.02 0.01 NT-Pro-B Natriuret Pep 3450 H Total Protein 7.0 Albumin 4.0 Globulin 3.0 Albumin/Globulin Ratio 1.3 TSH 2.95 Thyroxine (T4) 9.1 SARS-CoV-2 (PCR) Not detected Influenza A Untype (PCR) Not detected Influenza Type B (PCR) Not detected DS: Diagnosis Discharge Diagnosis (1) Acute hypoxemic respiratory failure: Status: Acute Code(s): J96.01 - Acute respiratory failure with hypoxia (2) CHF exacerbation: Status: Acute Code(s): I50.9 - Heart failure, unspecified (3) Hypertension: Status: Acute Code(s): I10 - Essential (primary) hypertension (4) History of coronary artery bypass graft: Status: Chronic Code(s): Z95.1 - Presence of aortocoronary bypass graft (5) Atrial fibrillation: Status: Acute Code(s): I48.91 - Unspecified atrial fibrillation (6) Aortic aneurysm: Status: Acute Code(s): I71.9 - Aortic aneurysm of unspecified site, without rupture Meds Home Medications and Allergies Home Medications ?Medication ?Instructions ?Recorded ?Confirmed ?Type diclofenac sodium 3 % topical gel 100 g topical DAILY pain 10/18/20 11/30/23 History carvedilol 12.5 mg tablet 12.5 mg PO BID 11/30/23 11/30/23 History hydrochlorothiazide 25 mg tablet 25 mg PO DAILY #30 tabs 12/01/23 Rx New Prescriptions to Start Prescriptions: Jonnathan Robison Allergies Allergy/AdvReac Type Severity Reaction Status Date / Time No Known Allergies Allergy Verified 11/30/23 15:05 Discharge Plan Disposition Patient Disposition: Home, Self-Care Condition: Fair Discharge Order Discharge Orders: Discharge Order (Routine); Ordered 12/01/23 Ordered By: Jonnathan Combs Follow up Plan Follow up with: John Gagnon MD [Primary Care Provider] - 12/03/23 10:15 am Prescriptions/Medication Reconciliation: New hydrochlorothiazide 25 mg tablet 25 mg PO DAILY Qty: 30 0RF Continued diclofenac sodium 100 GM gel 100 g topical DAILY carvedilol 12.5 mg tablet 12.5 mg PO BID Problem Reconciliation Problems Reviewed?: Yes Patient Discharge Instructions ACTIVITY: Continue current activity DIET: continue same diet Patient Instructions: DI for Heart Failure Print Language: Serbian Providers Primary Care Provider: John Gagnon Admit Provider: Jonnathan Combs Attending Provider: Jonnathan Combs
[2023-12-01] MEDS: BUMETANIDE 1MG/4ML VIAL 1 MG IV (09:45)
[2023-12-01] MEDS: CARVEDILOL 12.5MG TABLET 12.5 MG PO (09:45)
--- NOTE | 2023-12-04 15:48 | CARE MANAGER ---
Called and spoke with patient regarding recent discharge. Patient stated that he is doing well, has already seen Dr. Gagnon. Had no concerns at time of call.
== END 2023-12-01 11:13 | disposition home or self-care (01) ==
LOC: ER 12:54 → 2ND 14:40
PROVIDERS: Admitting Provider Internal Medicine Adolescent Medicine; Emergency Provider Emergency Medicine; PCP Internal Medicine Adolescent Medicine; Visit Provider Internal Medicine Adolescent Medicine
DX: J96.01 Acute respiratory failure with hypoxia (principal); I11.0 Hypertensive heart disease with heart failure; I50.9 Heart failure, unspecified; I48.91 Unspecified atrial fibrillation; Z95.1 Presence of aortocoronary bypass graft; I71.9 Aortic aneurysm of unspecified site, without rupture; R06.02 Shortness of breath
CPT/HCPCS: 36415; 71045; 71275; 80050; 80053; 82803; 83605; 83735; 83880; 84436; 84443; 84484; 85007; 85025; 85027; 85378; 87636; 93005; 99285; G0378; J1650; J1940; Q9967

== ENCOUNTER 2023-12-07 08:27 | Outpatient (CLI) | payer MEDICARE, SELFPAY ==
--- NOTE | 2023-12-07 08:30 | CA_ITS ---
APPROVED REPORT EXAM: Comprehensive 2D, Doppler, and color-flow Echocardiogram Typing Pool Supervisor: Comfort Workman RDCS Ht: 5 ft 8 in Wt: 170lbs BSA: 1.91 BP: 164/86 mmHg Indications: AF,CHF,HTN,HLP H/O CABG M-Mode Dimensions RVDd 2.86 cm (0.9-2.6) LA Diam 3.95 cm (1.9-4.0) LVDd 5.59 cm (3.5-5.7) LVDs 4.74 cm (3.5-5.7) IVSd 1.12 cm (0.6-1.1) PWd 0.85 cm (0.6-1.1) EF (Teich) 31.80% FS 15.20% EDV (Teich) 153.00 mL TAPSE 1.84 (<1.7) ESV (Teich) 104.40 mL LV Diastology E Decel Time 260 (160-240 msec) E/A Ratio 2.2 Aortic Valve RAFI Index 2.01 cm2/m2 AoV Peak Jose. 147.0 (50-130 cm/s) AI PHT 539.00 ms AO Peak GR. 8.70 mmHg AO Mean GR. 4.30 (<5 mmHg) AO VTI 29.9 (18-25 cm) RAFI (VTI) 3.92 (2.5-4.5 cm2) Mitral Valve MV E Max Jose. 95.0 (40-130 cm/s) MV A Velocity 44.0 (40-130 cm/s) E/A Ratio 2.17 MV PHT 76.0 ms Tricuspid Valve TR P. Velocity 300.00 cm/s RAP Estimate 10.00 mmHg RVSP 46.00 mmHg Left Ventricle The left ventricle is normal size. The left ventricular systolic function is normal. The left ventricular ejection fraction is within the normal range. There is increased LV wall thickness. There is normal LV segmental wall motion. Diastolic function is indeterminate. LVEF is 55%. Right Ventricle The right ventricle is normal size. The right ventricular systolic function is normal. Atria Left atrium is mildly dilated. Right atrium is mildly dilated. There is no Doppler evidence of interatrial shunt. Aortic Valve The aortic valve is mildly thickened. There is no aortic valvular stenosis. Moderate aortic regurgitation. Mitral Valve Mild mitral annular calcification. The mitral valve leaflets are mildly thickened. No evidence of mitral valve stenosis. Moderate mitral regurgitation. Tricuspid Valve The tricuspid valve leaflets are thin and pliable. Mild tricuspid regurgitation. RVSP is 35-40 mmHg. Pulmonic Valve The pulmonary valve is normal in structure. Mild pulmonic regurgitation. Great Vessels The aortic root is mildly dilated, measuring 4.5 cm in diameter. The ascending aorta is not well visualized. IVC is normal in size and collapses >50% with inspiration. Pericardium There is no pericardial effusion. Other Information Study Quality: Fair Conclusion Normal biventricular systolic function. Biatrial dilation. Moderate AI, moderate MR. Mild TR, mild PI. Elevated RVSP 35-40 mmHg. The aortic root is mildly dilated, measuring 4.5 cm in diameter. Correlation with new or recent CTA or MRA chest is recommended. Electronically signed by : Keturah Vivas MD 12/10/2023 09:55:28
== END 2023-12-07 23:59 | disposition home or self-care (01) ==
LOC: RT 08:28
PROVIDERS: PCP Internal Medicine Adolescent Medicine; Visit Provider Internal Medicine Adolescent Medicine
DX: I48.19 Other persistent atrial fibrillation (principal); I50.9 Heart failure, unspecified
CPT/HCPCS: 93306

== ENCOUNTER 2023-12-12 12:02 | Outpatient (CLI) | payer MEDICARE, SELFPAY ==
[2023-12-12 12:44] LABS: Basophils # 0.1 K/mm3 (0-0.2); Basophils % 0.6 % (0.1-2.0); Eosinophils # 0.1 K/mm3 (0.0-0.4); Eosinophils % 1.6 % (0.1-12.0); Hematocrit 37.4 % (42.0-52.0); Hemoglobin 11.8 g/dL (14.1-18.0); Lymphocytes # 1.2 K/mm3 (0.7-4.5); Lymphocytes % 15.9 % (10-50); Mean Corpuscular HGB Conc 31.6 g/dL (31.8-35.4); Mean Corpuscular Hemoglobin 31.5 pg (27.0-31.2); Mean Corpuscular Volume 99.7 fl (80-94); Mean Platelet Volume 8.4 fl (7.4-10.4); Monocytes # 1.9 K/mm3 (0.1-1.0); Monocytes % 25.4 % (1.7-9.3); Neutrophils # 4.2 K/mm3 (1.8-7.8); Neutrophils % 56.5 % (37.0-80.0); Platelet Count 207 K/mm3 (142-424); Red Blood Count 3.75 M/mm3 (4.60-6.20); Red Cell Distribution Width 15.1 % (11.5-17.5); White Blood Count 7.5 K/mm3 (4.8-10.8)
[2023-12-12 12:48] LABS: MANUAL DIFFERENTIAL MANUAL DIFFERENTIAL (MANUAL DIFF)
[2023-12-12 13:15] LABS: Alanine Aminotransferase 20 U/L (12-78); Albumin Level 3.8 g/dl (3.5-5.0); Albumin/Globulin Ratio 1.4 (1.1-1.8); Alkaline Phosphatase 78 U/L (38-126); Anion Gap 12.2 mEq/L (5-15); Aspartate Amino Transferase 27 U/L (17-59); Bilirubin,Total 0.7 mg/dl (0.2-1.3); Blood Urea Nitrogen 34 mg/dl (9-20); Carbon Dioxide 28 mmol/L (22.0-30.0); Chloride 102 mmol/L (98-107); Estimated Glomerular Filt Rate 72 ml/min (>60); GFR (African American) 87 ML/MIN (>60); Globulin 2.7 g/dL (1.3-3.2); Glucose 96 mg/dl (74-100); Potassium 4.2 mmoL/L (3.5-5.1); Sodium 138 mmol/L (136-145); Total Protein,Serum 6.5 g/dl (6.3-8.2)
[2023-12-12 13:24] LABS: Eosinophils % 1 % (0-3); Lymphocytes % 29 % (10-50); Monocytes % 14 % (2-9); Neutrophils % 56 % (42-76); Total Cells Counted 100
[2023-12-12 13:25] LABS: Anisocytosis 1+; Macrocytosis 1+; Platelet Estimate Normal
== END 2023-12-12 23:59 | disposition home or self-care (01) ==
LOC: LAB 12:02
PROVIDERS: PCP Internal Medicine Adolescent Medicine; Visit Provider Internal Medicine Medical Oncology
DX: D69.6 Thrombocytopenia, unspecified (principal); D64.9 Anemia, unspecified
CPT/HCPCS: 36415; 80053; 85007; 85025; 85027

== ENCOUNTER 2024-01-15 12:53 | Outpatient (CLI) | payer MEDICARE, SELFPAY ==
[2024-01-15 13:16] LABS: Basophils % 0.2 % (0.1-2.0); Eosinophils # 0.2 K/mm3 (0.0-0.4); Eosinophils % 3.5 % (0.1-12.0); Hematocrit 36.2 % (42.0-52.0); Hemoglobin 11.5 g/dL (14.1-18.0); Lymphocytes # 1.2 K/mm3 (0.7-4.5); Lymphocytes % 22.2 % (10-50); Mean Corpuscular HGB Conc 31.7 g/dL (31.8-35.4); Mean Corpuscular Hemoglobin 31.9 pg (27.0-31.2); Mean Corpuscular Volume 100.8 fl (80-94); Mean Platelet Volume 9.6 fl (7.4-10.4); Monocytes # 1.3 K/mm3 (0.1-1.0); Monocytes % 24.3 % (1.7-9.3); Neutrophils # 2.7 K/mm3 (1.8-7.8); Neutrophils % 49.8 % (37.0-80.0); Platelet Count 78 K/mm3 (142-424); Red Cell Distribution Width 15.9 % (11.5-17.5); White Blood Count 5.4 K/mm3 (4.8-10.8)
[2024-01-15 13:21] LABS: MANUAL DIFFERENTIAL MANUAL DIFFERENTIAL (MANUAL DIFF)
[2024-01-15 13:52] LABS: Alanine Aminotransferase 15 U/L (12-78); Albumin Level 4.1 g/dl (3.5-5.0); Albumin/Globulin Ratio 1.8 (1.1-1.8); Alkaline Phosphatase 68 U/L (38-126); Anion Gap 10.3 mEq/L (5-15); Aspartate Amino Transferase 31 U/L (17-59); Bilirubin,Total 1.5 mg/dl (0.2-1.3); Blood Urea Nitrogen 22 mg/dl (9-20); Calcium 9.1 mg/dl (8.4-10.2); Carbon Dioxide 26 mmol/L (22.0-30.0); Chloride 107 mmol/L (98-107); Estimated Glomerular Filt Rate 58 ml/min (>60); GFR (African American) 70 ML/MIN (>60); Globulin 2.3 g/dL (1.3-3.2); Glucose 93 mg/dl (74-100); Potassium 4.3 mmoL/L (3.5-5.1); Sodium 139 mmol/L (136-145); Total Protein,Serum 6.4 g/dl (6.3-8.2)
[2024-01-15 15:55] LABS: Anisocytosis 1+; Lymphocytes % 45 % (10-50); Macrocytosis 1+; Monocytes % 2 % (2-9); Neutrophils % 53 % (42-76); Platelet Estimate Moderate Decrease; Total Cells Counted 100
== END 2024-01-15 23:59 | disposition home or self-care (01) ==
LOC: LAB 12:54
PROVIDERS: PCP Internal Medicine Adolescent Medicine; Visit Provider Internal Medicine Medical Oncology
DX: D72.829 Elevated white blood cell count, unspecified (principal); D64.9 Anemia, unspecified
CPT/HCPCS: 36415; 80053; 85007; 85025; 85027

== ENCOUNTER 2024-02-12 13:34 | Outpatient (CLI) | payer MEDICARE, SELFPAY ==
[2024-02-12 14:19] LABS: Basophils % 0.5 % (0.1-2.0); Eosinophils # 0.1 K/mm3 (0.0-0.4); Eosinophils % 1.7 % (0.1-12.0); Hematocrit 31.8 % (42.0-52.0); Hemoglobin 10.5 g/dL (14.1-18.0); Lymphocytes % 17.5 % (10-50); Mean Corpuscular HGB Conc 33.1 g/dL (31.8-35.4); Mean Corpuscular Hemoglobin 31.9 pg (27.0-31.2); Mean Corpuscular Volume 96.5 fl (80-94); Mean Platelet Volume 11.9 fl (7.4-10.4); Monocytes # 1.8 K/mm3 (0.1-1.0); Monocytes % 29.9 % (1.7-9.3); Neutrophils % 50.4 % (37.0-80.0); Red Cell Distribution Width 17.7 % (11.5-17.5); White Blood Count 5.9 K/mm3 (4.8-10.8)
[2024-02-12 14:39] LABS: MANUAL DIFFERENTIAL MANUAL DIFFERENTIAL (MANUAL DIFF); Platelet Count 37 K/mm3 (142-424)
[2024-02-12 15:21] LABS: Acanthocytes 1+; Anisocytosis 1+; Lymphocytes % 23 % (10-50); Monocytes % 23 % (2-9); Neutrophils % 53 % (42-76); Ovalocytes 1+; Poikilocytosis 2+; Schistocytes 1+; Total Cells Counted 100
[2024-02-12 15:22] LABS: Platelet Estimate Marked Decrease
[2024-02-12 15:31] LABS: Albumin Level 3.7 g/dl (3.5-5.0); Chloride 106 mmol/L (98-107); Potassium 3.9 mmoL/L (3.5-5.1); Sodium 139 mmol/L (136-145)
[2024-02-12 15:34] LABS: Alanine Aminotransferase 19 U/L (12-78); Albumin/Globulin Ratio 1.5 (1.1-1.8); Alkaline Phosphatase 71 U/L (38-126); Anion Gap 13.9 mEq/L (5-15); Aspartate Amino Transferase 32 U/L (17-59); Bilirubin,Total 1.7 mg/dl (0.2-1.3); Blood Urea Nitrogen 43 mg/dl (9-20); Calcium 8.5 mg/dl (8.4-10.2); Carbon Dioxide 23 mmol/L (22.0-30.0); Estimated Glomerular Filt Rate 49 ml/min (>60); GFR (African American) 59 ML/MIN (>60); Globulin 2.4 g/dL (1.3-3.2); Glucose 116 mg/dl (74-100); Total Protein,Serum 6.1 g/dl (6.3-8.2)
== END 2024-02-12 23:59 | disposition home or self-care (01) ==
LOC: LAB 13:40
PROVIDERS: PCP Internal Medicine Adolescent Medicine; Visit Provider Internal Medicine Medical Oncology
DX: D64.9 Anemia, unspecified (principal)
CPT/HCPCS: 36415; 80053; 85007; 85025; 85027

== ENCOUNTER 2024-02-14 14:59 | Outpatient (CLI) | payer MEDICARE, SELFPAY ==
[2024-02-14 15:13] LABS: Basophils # 0.1 K/mm3 (0-0.2); Basophils % 0.6 % (0.1-2.0); Eosinophils # 0.1 K/mm3 (0.0-0.4); Eosinophils % 0.8 % (0.1-12.0); Hematocrit 30.6 % (42.0-52.0); Hemoglobin 10.5 g/dL (14.1-18.0); Lymphocytes # 1.3 K/mm3 (0.7-4.5); Mean Corpuscular HGB Conc 34.2 g/dL (31.8-35.4); Mean Corpuscular Hemoglobin 32.7 pg (27.0-31.2); Mean Corpuscular Volume 95.6 fl (80-94); Mean Platelet Volume 11.4 fl (7.4-10.4); Monocytes # 0.7 K/mm3 (0.1-1.0); Monocytes % 6.8 % (1.7-9.3); Neutrophils % 78.8 % (37.0-80.0); Red Cell Distribution Width 18.1 % (11.5-17.5); White Blood Count 10.2 K/mm3 (4.8-10.8)
[2024-02-14 15:25] LABS: Platelet Count 49 K/mm3 (142-424)
== END 2024-02-14 23:59 | disposition home or self-care (01) ==
LOC: LAB 15:00
PROVIDERS: PCP Internal Medicine Adolescent Medicine; Visit Provider Internal Medicine Medical Oncology
DX: D64.9 Anemia, unspecified (principal)
CPT/HCPCS: 36415; 85025

== ENCOUNTER 2024-02-15 13:00 | Emergency (ER) | payer MEDICARE, SELFPAY ==
[2024-02-15] VITALS (22 sets, daily range): BP systolic 139–183; BP diastolic 67–90; PULSE 40–92; RESP 17–23; TEMP 36.7–36.9; O2SAT 74–96; BMI 29.1
--- NOTE | 2024-02-15 13:19 | XR_ITS ---
PROCEDURE INFORMATION: Exam: XR Chest Exam date and time: 02/15/2024 1:23 PM Age: 83 years old Clinical indication: Shortness of breath; Prior surgery; Surgery date: 1-6 months; Surgery type: PT states heart surgery; Denies stents; Additional info: SOA x3 days TECHNIQUE: Imaging protocol: Radiologic exam of the chest. Views: 2 views. COMPARISON: CR XR CHEST 2V 02/15/2024 1:23 PM FINDINGS: Lungs: Bilateral multilobar airspace disease. Pleural spaces: Small pleural effusions. Heart/Mediastinum: Mild cardiomegaly. Bones/joints: Sternal sutures. High-riding right humeral head. Osteoarthritis of the acromioclavicular joints. Spondylosis of the spine. IMPRESSION: 1. Bilateral multilobar airspace disease may represent edema or pneumonia. 2. Small pleural effusions. 3. Mild cardiomegaly. 4. High-riding right humeral head may indicate underlying chronic rotator cuff tear.
--- NOTE | 2024-02-15 13:23 | HMH.EDGENADL ---
Discharge Plan Disposition Patient Disposition: Xfer Short-Term Hosp Prescriptions Prescriptions: No Action hydrocodone-acetaminophen 10-325 mg tablet 1 tab PO Q6H PRN Patient Comments: TAKE 1 TABLET BY MOUTH EVERY 6 HOURS NEEDED FOR SEVERE PAIN FOR 30 DAYS amiodarone 200 mg tablet 200 mg PO TID Patient Comments: TAKE 1 TABLET BY MOUTH THREE TIMES DAILY diclofenac sodium 100 GM gel 100 g topical DAILY carvedilol 12.5 mg tablet 12.5 mg PO BID hydrochlorothiazide 25 mg tablet 25 mg PO DAILY Qty: 30 0RF Referrals Follow up/Referrals: John Gagnon MD [Primary Care Provider] - See instructions Clinical Impressions Clinical Impression: Aortic dissection Stand Alone Forms Stand Alone Forms: Transfer Record - ED Print Language Print Language: Nepali Discharge ED Provider: Federico Sosa General Adult HPI General Chief complaint: Shortness of Breath/Dyspnea Stated complaint: Cough and soa Time Seen by Provider: 02/15/24 13:17 History of Present Illness HPI narrative: The patient presents with difficulty breathing and reports no pain. The onset of this flare is unclear, but the patient mentions using albuterol recently. The patient has a history of COPD and was taken off carvedilol for blood pressure. Currently on Xarelto blood thinner in preparation for a procedure next week to remove fluid from his back due to low blood platelets. The patient has a 5 cm aortic aneurysm at the top of the aorta. The patient has a history of open heart surgery with four grafts 25 years ago, which was not due to a heart attack but because of shortness of breath and fatigue. The patient is known to have atrial fibrillation and experienced a mild heart attack on December 05. The patient reports spitting up yellow phlegm and a small amount of blood. The patient denies any abdominal pain or blood in stools. The patient is under the care of an oncologist, Dr. Samuels, and has an upcoming appointment with a ditch tender on the of this month. The patient's cancer type is currently unknown, and a lumbar puncture is scheduled for Sunday to investigate further. The patient's platelet count has been fluctuating, with a recent drop to 37 and a subsequent increase to 112 points below yesterday's count. The patient mentions having two leaky heart valves. The patient was previously on Eliquis but experienced side effects, leading to the switch to Xarelto. The patient received Lasix on December 05, prior to being diagnosed with congestive heart failure. The patient reports that during a previous stress test, they were unable to complete it due to shortness of breath, which led to the discovery of their heart condition and subsequent bypass surgery. Please note that above description of symptoms, in this electronic medical record under categorization of recalled from ER triage doctor by RN are reflective of an initial nursing assessment, however, is not reflective of my full history and physical exam that was personally taken and clarified. Consequentially, this preceding description of symptoms, which may include the patient's categorized chief complaint in the EMR, do not reflect my personal clinical impression, and the ultimate description of history of present illness and patient stated complaints should be deferred to this section of the note. Unless stated otherwise or congruent with this section of the note, additional signs, symptoms, or incongruence should be interpreted as inaccurate with my clinical impression. Related Data Home Medications ?Medication ?Instructions ?Recorded ?Confirmed diclofenac sodium 3 % topical gel 100 g topical DAILY pain 10/18/20 02/14/24 carvedilol 12.5 mg tablet 12.5 mg PO BID 11/30/23 02/14/24 hydrocodone 10 mg-acetaminophen 1 tab PO Q6H PRN 12/12/23 02/14/24 325 mg tablet amiodarone 200 mg tablet 200 mg PO TID 02/14/24 02/14/24 Previous Rx's ?Medication ?Instructions ?Recorded hydrochlorothiazide 25 mg tablet 25 mg PO DAILY #30 tabs 12/01/23 Allergies Allergy/AdvReac Type Severity Reaction Status Date / Time No Known Allergies Allergy Verified 02/14/24 14:03 [facility] Disclaimer: The information contained in this section may have been updated after the patient was seen, as this information can be updated by other users. Medical History History of abdominal aortic aneurysm History of heart attack Hypertension Congestive heart failure Surgical History History of coronary artery bypass graft H/O rotator cuff surgery History of open heart surgery History of colon resection Family History Other No significant family history Social History Smoking Status: Unknown if ever smoked alcohol intake: never current occupational status: retired Travel in the last 8 weeks: None household members: family Other Medical History Have you received the Flu Vaccine for this season: No Have you received the Pneumonia Vaccine: No ROS Obtained: Yes other As per HPI Physical Exam General General appearance: alert and in no apparent distress Head Head exam: atraumatic and normocephalic Eye Eye exam: Present normal appearance Neck Neck exam: Present normal inspection Chest Chest inspection: Present normal inspection and symmetric chest wall rise Respiratory Respiratory exam: Present other (Tachypnea, bilateral crackles) Cardiovascular Cardiovascular exam: Present bradycardia Abdominal Exam Abdominal exam: Present soft; Absent tenderness Neurological Exam Neurological exam: Present alert and oriented X3 Psychiatric Psychiatric exam: Present normal affect and normal mood Skin Skin exam: Present warm and dry Medical Decision Making Medical Records Medical records reviewed: Yes I reviewed the patient's medical records. Screening: Per USPSTF and CDC recommendations, given the prevalence of disease in our region, it is our hospital?s policy to screen for HIV and viral Hepatitis for all patients aged 18 and over and those with ongoing risk factors. [place] Inquiry Pt receiving controlled substance: No Vital Signs: 02/15/24 13:02 02/15/24 14:26 02/15/24 14:30 Temperature 98.0 F Temperature Source Oral Pulse Rate 57 L 58 L Pulse Rate [Radial] 57 L Respiratory Rate 22 TAR Vitals Timing Blood Pressure 148/81 H 154/87 H Blood Pressure [Right Arm] 149/77 H Blood Pressure Mean Blood Pressure Mean [Right Arm] 101 Blood Pressure Source Blood Pressure Source [Right Arm] Automatic Cuff Blood Pressure Position Blood Pressure Position [Right Arm] Sitting 02 Sat by Pulse Oximetry 74 L 86 L 87 L Oxygen Delivery Method Room Air Nasal Cannula Nasal Cannula Oxygen Flow Rate (LPM) 4 4 02/15/24 15:01 02/15/24 15:31 02/15/24 16:01 Temperature Temperature Source Pulse Rate 57 L 40 L 66 Pulse Rate [Radial] Respiratory Rate 22 18 19 TAR Vitals Timing Blood Pressure 139/89 183/90 H 161/86 H Blood Pressure [Right Arm] Blood Pressure Mean 92 Blood Pressure Mean [Right Arm] Blood Pressure Source Blood Pressure Source [Right Arm] Blood Pressure Position Blood Pressure Position [Right Arm] 02 Sat by Pulse Oximetry 90 L 93 L 90 L Oxygen Delivery Method Nasal Cannula Nasal Cannula Oxygen Flow Rate (LPM) 6 6 6 02/15/24 16:36 02/15/24 16:42 02/15/24 16:45 Temperature 98.0 F 98.0 F Temperature Source Oral Oral Pulse Rate 64 92 H 67 Pulse Rate [Radial] Respiratory Rate 18 18 18 TAR Vitals Timing Pre-Blood Vitals Start Vitals Blood Pressure 173/86 H 173/84 H 153/76 H Blood Pressure [Right Arm] Blood Pressure Mean 113 101 Blood Pressure Mean [Right Arm] Blood Pressure Source Automatic Cuff Automatic Cuff Blood Pressure Source [Right Arm] Blood Pressure Position Sitting Sitting Blood Pressure Position [Right Arm] 02 Sat by Pulse Oximetry 91 L 92 L 91 L Oxygen Delivery Method Nasal Cannula Oxygen Flow Rate (LPM) 6 02/15/24 16:49 02/15/24 16:50 02/15/24 16:51 Temperature 98.0 F Temperature Source Oral Pulse Rate 68 42 L 65 Pulse Rate [Radial] Respiratory Rate 18 18 17 TAR Vitals Timing 5 Minute Blood Pressure 153/76 H 156/70 H 157/69 H Blood Pressure [Right Arm] Blood Pressure Mean 98 Blood Pressure Mean [Right Arm] Blood Pressure Source Automatic Cuff Blood Pressure Source [Right Arm] Blood Pressure Position Sitting Blood Pressure Position [Right Arm] 02 Sat by Pulse Oximetry 90 L 92 L 92 L Oxygen Delivery Method Nasal Cannula Oxygen Flow Rate (LPM) 6 02/15/24 16:55 02/15/24 16:56 02/15/24 17:00 Temperature 98.1 F 98.0 F Temperature Source Oral Oral Pulse Rate 64 64 64 Pulse Rate [Radial] Respiratory Rate 18 19 18 TAR Vitals Timing 10 Minute 15 Minute Blood Pressure 141/76 H 156/70 H 164/68 H Blood Pressure [Right Arm] Blood Pressure Mean 97 100 Blood Pressure Mean [Right Arm] Blood Pressure Source Automatic Cuff Arterial Line Blood Pressure Source [Right Arm] Blood Pressure Position Sitting Sitting Blood Pressure Position [Right Arm] 02 Sat by Pulse Oximetry 92 L 93 L 90 L Oxygen Delivery Method Nasal Cannula Oxygen Flow Rate (LPM) 6 02/15/24 17:01 02/15/24 17:06 02/15/24 17:15 Temperature 98.0 F Temperature Source Oral Pulse Rate 61 64 68 Pulse Rate [Radial] Respiratory Rate 17 17 18 TAR Vitals Timing 30 Minute Blood Pressure 141/76 H 152/69 H 177/67 H Blood Pressure [Right Arm] Blood Pressure Mean 103 Blood Pressure Mean [Right Arm] Blood Pressure Source Arterial Line Blood Pressure Source [Right Arm] Blood Pressure Position Sitting Blood Pressure Position [Right Arm] 02 Sat by Pulse Oximetry 90 L 90 L 96 Oxygen Delivery Method Nasal Cannula Nasal Cannula Oxygen Flow Rate (LPM) 6 6 02/15/24 17:16 02/15/24 17:30 02/15/24 17:45 Temperature 98.1 F 98.1 F Temperature Source Oral Oral Pulse Rate 66 66 64 Pulse Rate [Radial] Respiratory Rate 23 18 20 TAR Vitals Timing 45 Minute 60 Minute Blood Pressure 155/69 H 155/69 H 172/68 H Blood Pressure [Right Arm] Blood Pressure Mean 97 102 Blood Pressure Mean [Right Arm] Blood Pressure Source Arterial Line Automatic Cuff Blood Pressure Source [Right Arm] Blood Pressure Position Sitting Sitting Blood Pressure Position [Right Arm] 02 Sat by Pulse Oximetry 90 L 96 92 L Oxygen Delivery Method Nasal Cannula Oxygen Flow Rate (LPM) 6 02/15/24 18:04 Temperature 98.4 F Temperature Source Oral Pulse Rate 66 Pulse Rate [Radial] Respiratory Rate 23 TAR Vitals Timing Blood Pressure 155/69 H Blood Pressure [Right Arm] Blood Pressure Mean Blood Pressure Mean [Right Arm] Blood Pressure Source Automatic Cuff Blood Pressure Source [Right Arm] Blood Pressure Position Sitting Blood Pressure Position [Right Arm] 02 Sat by Pulse Oximetry Oxygen Delivery Method Nasal Cannula Oxygen Flow Rate (LPM) 6 Lab Data Lab Results 02/15/24 13:15: WBC 13.3 H D, RBC 3.44 L, Hgb 10.8 L, Hct 32.9 L, MCV 95.4 H, MCH 31.3 H, MCHC 32.8, RDW 18.2 H, Plt Count 53 L, MPV 11.4 H, Neut % (Auto) 62.3, Lymph % (Auto) 10.5, [place] % (Auto) 26.1 H D, Eos % (Auto) 0.7, Baso % (Auto) 0.5, Neut # (Auto) 8.3 H, Lymph # (Auto) 1.4, [place] # (Auto) 3.5 H, Eos # (Auto) 0.1, Baso # (Auto) 0.1, Total Counted 100, Neutrophils % (Manual) 55, Lymphocytes % (Manual) 24, Monocytes % (Manual) 20 H, Eosinophils % (Manual) 1, Platelet Estimate Slight decrease, Poikilocytosis 1+, Ovalocytes 1+, PT 20.5 H, INR 1.96 H, Sodium 136, Potassium 3.3 L, Chloride 102, Carbon Dioxide 21 L, Anion Gap 16.3 H, BUN 28 H D, Creatinine 1.10 D, Estimated Creat Clear 59, Estimated GFR 64, Est GFR ( Amer) 78 D, Glucose 141 H, Calcium 9.2, Magnesium 1.8, Total Bilirubin 4.0 H, AST 57 D, ALT 34 D, Alkaline Phosphatase 84, Troponin I 0.04 H, NT-Pro-B Natriuret Pep 5130 H, Total Protein 7.6, Albumin 4.5, Globulin 3.1, Albumin/Globulin Ratio 1.5, HIV 1&2 Antibody Rapid Nonreactive, Blood Type Confirm O Negative 02/15/24 13:40: Blood Type O Negative, Antibody Screen Negative, Crossmatch (AHG) See Detail 02/15/24 13:41: VBG pH 7.39, VBG pCO2 32.1 L, VBG pO2 37.4, VBG HCO3 19.1 L, VBG Total CO2 20.1 L, VBG O2 Saturation 67.2, VBG Base Excess -5.8 L, VBG Lactic Acid 4.6 H 02/15/24 13:15 02/15/24 13:15 Orders (Tests/Meds): ED MEDICATIONS Discontinued Medications Generic Name Dose Route Start Last Admin Trade Name Freq PRN Reason Stop Dose Admin Furosemide 40 mg 02/15/24 16:58 02/15/24 16:58 Furosemide 40mg/4ml Vial IV 02/15/24 16:59 40 mg ONCE ONE Administration Sodium Chloride 250 mls @ 25 mls/hr 02/15/24 15:45 Sod Chlor 0.9% 250ml Bag IV 02/16/24 15:44 .Q10H SERAFIN Nitroglycerin/Dextrose 250 mls @ 1.5 mls/hr 02/15/24 17:15 Nitroglycerin 50mg/250ml D5w IV 03/16/24 17:14 .Q24H SERAFIN Protocol 5 MCG/MIN Iopamidol 80 ml 02/15/24 14:03 02/15/24 14:05 Iopamidol-370 (76%);100ml Bottle IV 02/15/24 14:04 80 ml ONCE ONE Administration Sodium Chloride 10 ml 02/15/24 13:28 Sodium Chloride 0.9% 10ml Flush Syringe IV 03/16/24 13:27 NEEDED PRN Maintain IV Site Sodium Chloride 10 ml 02/15/24 14:03 02/15/24 14:05 Sodium Chloride 0.9% 10ml Syr (Rad Only) IV 02/15/24 14:04 10 ml ONCE ONE Administration Sodium Chloride 50 ml 02/15/24 14:03 02/15/24 14:05 0.9 % Sodium Chloride 50 Ml Vial IV 02/15/24 14:04 50 ml ONCE ONE Administration ORDERS Category Date Time Status Red Blood Cells Stat BBK 02/15/24 13:40 Results Type and Screen Stat BBK 02/15/24 13:[address] angio abdomen pelvis Stat Cat Scan 02/15/24 13:58 Completed CTA Chest [CT angio chest PE protocol] Stat Cat Scan 02/15/24 13:58 Completed XR chest 2V Stat Exams 02/15/24 13:19 Completed BNP [NT Pro Brain Natriuretic Pep.] Stat Lab 02/15/24 13:15 Completed CBC w/Auto Diff [Complete Blood Count Auto Diff] Stat Lab 02/15/24 13:15 Completed CMP [Comprehensive Metabolic Panel] Stat Lab 02/15/24 13:15 Completed HIV (1&2) Antibody Rapid Stat Lab 02/15/24 13:15 Completed Hep C Ab with Reflex to RNA Stat Lab 02/15/24 13:15 Received MAG [Magnesium] Stat Lab 02/15/24 13:15 Completed PT INR [Prothrombin Time INR] Stat Lab 02/15/24 13:15 Completed Troponin I Q3H Lab 02/15/24 13:15 Completed VBG [Venous Blood Gas] Stat RT 02/15/24 13:41 Completed Medical Decision Narrative: Patient with history and exam per above presenting for evaluation of shortness of breath Diagnoses considered include ACS, PE, COPD exacerbation, dissection, CHF exacerbation, among others ED workup and treatment included: ED MEDICATIONS Discontinued Medications Generic Name Dose Route Start Last Admin Trade Name Freq PRN Reason Stop Dose Admin Furosemide 40 mg 02/15/24 16:58 02/15/24 16:58 Furosemide 40mg/4ml Vial IV 02/15/24 16:59 40 mg ONCE ONE Administration Sodium Chloride 250 mls @ 25 mls/hr 02/15/24 15:45 Sod Chlor 0.9% 250ml Bag IV 02/16/24 15:44 .Q10H SERAFIN Nitroglycerin/Dextrose 250 mls @ 1.5 mls/hr 02/15/24 17:15 Nitroglycerin 50mg/250ml D5w IV 03/16/24 17:14 .Q24H SERAFIN Protocol 5 MCG/MIN Iopamidol 80 ml 02/15/24 14:03 02/15/24 14:05 Iopamidol-370 (76%);100ml Bottle IV 02/15/24 14:04 80 ml ONCE ONE Administration Sodium Chloride 10 ml 02/15/24 13:28 Sodium Chloride 0.9% 10ml Flush Syringe IV 03/16/24 13:27 NEEDED PRN Maintain IV Site Sodium Chloride 10 ml 02/15/24 14:03 02/15/24 14:05 Sodium Chloride 0.9% 10ml Syr (Rad Only) IV 02/15/24 14:04 10 ml ONCE ONE Administration Sodium Chloride 50 ml 02/15/24 14:03 02/15/24 14:05 0.9 % Sodium Chloride 50 Ml Vial IV 02/15/24 14:04 50 ml ONCE ONE Administration ORDERS Category Date Time Status Red Blood Cells Stat BBK 02/15/24 13:40 Results Type and Screen Stat K 02/15/24 13:[address] angio abdomen pelvis Stat Cat Scan 02/15/24 13:58 Completed CTA Chest [CT angio chest PE protocol] Stat Cat Scan 02/15/24 13:58 Completed XR chest 2V Stat Exams 02/15/24 13:19 Completed BNP [NT Pro Brain Natriuretic Pep.] Stat Lab 02/15/24 13:15 Completed CBC w/Auto Diff [Complete Blood Count Auto Diff] Stat Lab 02/15/24 13:15 Completed CMP [Comprehensive Metabolic Panel] Stat Lab 02/15/24 13:15 Completed HIV (1&2) Antibody Rapid Stat Lab 02/15/24 13:15 Completed Hep C Ab with Reflex to RNA Stat Lab 02/15/24 13:15 Received MAG [Magnesium] Stat Lab 02/15/24 13:15 Completed PT INR [Prothrombin Time INR] Stat Lab 02/15/24 13:15 Completed Troponin I Q3H Lab 02/15/24 13:15 Completed VBG [Venous Blood Gas] Stat RT 02/15/24 13:41 Completed Labs were independently interpreted by me, significant for leukocytosis, thrombocytopenia, lactate 4.6, potassium 3.3 Imaging was independently visualized and interpreted by me, significant for concern for acute dissection of known chronic abdominal aortic aneurysm, bilateral pleural effusions, no pulmonary embolism. Please refer to radiology report for full details. Given multiple comorbidities and respiratory distress, concern for acute versus subacute dissection of known abdominal aortic aneurysm, patient will benefit from transfer to outside facility for higher level of care. He was accepted for transfer to outside facility Procedures Arterial Line Time Out Performed: Yes Size (Gauge): 18 Technique Used: guide wire technique Post-Procedure: line sutured into place Patient Tolerated Procedure: well Complications: none Site: left Critical Care Critical Care Time Critical Care Time: Yes Attestation: On 02/15/24, the high probability of a clinically significant, sudden or life threatening deterioration of the following system(s) required my full and direct attention, intervention and personal management. The time I documented below is in addition to time spent performing reported procedures but includes the following listed in this critical care notation. Total Time Total Critical Care Time: 30
[2024-02-15 13:42] LABS: VBG Base Excess -5.8 mmol/L (-2.4-2.3); VBG HCO3 19.1 mmol/L (23-30); VBG Oxygen Saturation 67.2 % (50-70); VBG PCO2 32.1 mmol/L (35-51); VBG PH 7.39 mmol/L (7.31-7.41); VBG PO2 37.4 mmol/L (28-40); VBG Total CO2 20.1 mmol/L (23-27)
[2024-02-15 13:44] LABS: INR 1.96 (0.9-1.1); Prothrombin Time 20.5 seconds (10.1-12.5)
--- NOTE | 2024-02-15 13:44 | PC.NURSE ---
Sarah from Respiratory called VBG on patient, Lactic 4.61, CO2 32.1, PO2 37.4, and Sat 67.2
[2024-02-15 13:45] LABS: Lactate Venous 4.6 mmol/L (0.4-2.0)
[2024-02-15 13:45] LABS: Magnesium 1.8 mg/dl (1.6-2.3)
[2024-02-15 13:46] LABS: Alanine Aminotransferase 34 U/L (12-78); Albumin Level 4.5 g/dl (3.5-5.0); Albumin/Globulin Ratio 1.5 (1.1-1.8); Alkaline Phosphatase 84 U/L (38-126); Anion Gap 16.3 mEq/L (5-15); Aspartate Amino Transferase 57 U/L (17-59); Blood Urea Nitrogen 28 mg/dl (9-20); Calcium 9.2 mg/dl (8.4-10.2); Carbon Dioxide 21 mmol/L (22.0-30.0); Chloride 102 mmol/L (98-107); Creatinine Clearance Estimated 59 mL/min (50-200); Estimated Glomerular Filt Rate 64 ml/min (>60); GFR (African American) 78 ML/MIN (>60); Globulin 3.1 g/dL (1.3-3.2); Glucose 141 mg/dl (74-100); Potassium 3.3 mmoL/L (3.5-5.1); Sodium 136 mmol/L (136-145); Total Protein,Serum 7.6 g/dl (6.3-8.2)
--- NOTE | 2024-02-15 13:46 | PC.NURSE ---
DR CONNORS AT BEDSIDE
[2024-02-15 13:56] LABS: NT Pro Brain Natriuretic Pep. 5130 pg/mL (0-450); Troponin I 0.04 ng/ml (0.00-0.034)
--- NOTE | 2024-02-15 13:58 | CT_ITS ---
PROCEDURE INFORMATION: Exam: CTA Abdomen and Pelvis With Contrast Exam date and time: 02/15/2024 2:06 PM Age: 83 years old Clinical indication: Difficulty breathing or dyspnea; Additional info: HX aaa, shock TECHNIQUE: Imaging protocol: Computed tomographic angiography of the abdomen and pelvis with contrast. Exam focused on the arteries. 3D rendering (Not supervised by radiologist): MIP and/or 3D reconstructed images were created by the technologist. Radiation optimization: All CT scans at this facility use at least one of these dose optimization techniques: automated exposure control; mA and/or kV adjustment per patient size (includes targeted exams where dose is matched to clinical indication); or iterative reconstruction. Contrast material: ISOVUE 370; Contrast volume: 80 ml; Contrast route: INTRAVENOUS (IV); COMPARISON: CR XR HIP RT 2-3V W/PELVIS 09/22/2020 11:57 AM FINDINGS: Limitations: Moderate motion artifact. Aorta: 4.3 cm anterior-posterior by 4.2 cm transverse by 4.1 cm craniocaudad distal abdominal aortic aneurysm. Potential approximately 4 cm long dissection of indeterminate chronicity within the aortic aneurysm; motion artifact limits evaluation. Celiac trunk and mesenteric arteries: Potential stenosis of the celiac artery origin and potential stenosis of the superior mesenteric artery origin. Renal arteries: No occlusion or significant stenosis. Right iliac arteries: No occlusion or significant stenosis. Left iliac arteries: No occlusion or significant stenosis. Other findings: Moderate multivessel atherosclerosis. Liver: No mass. Gallbladder and biliary ducts: Unremarkable. No calcified stones. No ductal dilation. Pancreas: Somewhat atrophic pancreas. Spleen: Unremarkable. No splenomegaly. Adrenal glands: Unremarkable. No mass. Kidneys and ureters: Nonspecific stranding around the kidneys. No hydronephrosis. 1.9 cm simple appearing left kidney cyst. Stomach and bowel: Colonic diverticulosis. No bowel dilation. No bowel wall thickening. Distal colon surgical anastomosis. Appendix: No evidence of appendicitis. Intraperitoneal space: Unremarkable. No free air. No significant fluid collection. Lymph nodes: Unremarkable. No enlarged lymph nodes. Urinary bladder: Urinary bladder diverticuli. Reproductive: Prostate calcifications. Bones/joints: Degenerative change of the spine, pelvis and hips. Soft tissues: Small fat containing left inguinal hernia. IMPRESSION: 1. Limited by motion artifact. 2. 4.3 cm anterior-posterior by 4.2 cm transverse by 4.1 cm craniocaudad distal abdominal aortic aneurysm. Potential approximately 4 cm long dissection of indeterminate chronicity within the aortic aneurysm; motion artifact limits evaluation. 3. Potential stenosis of the celiac artery origin and potential stenosis of the superior mesenteric artery origin. 4. Nonspecific stranding around the kidneys, which can be seen with medical renal disease. 5. Lung base findings reported on dedicated CT chest. 6. Additional chronic/nonemergent findings as detailed above.
--- NOTE | 2024-02-15 13:58 | CT_ITS ---
PROCEDURE INFORMATION: Exam: CTA Chest With Contrast Exam date and time: 02/15/2024 2:06 PM Age: 83 years old Clinical indication: Dyspnea; Additional info: SOA, R heart strain on pocus TECHNIQUE: Imaging protocol: Computed tomographic angiography of the chest with contrast. Exam focused on the arteries. 3D rendering (Not supervised by radiologist): MIP and/or 3D reconstructed images were created by the technologist. Radiation optimization: All CT scans at this facility use at least one of these dose optimization techniques: automated exposure control; mA and/or kV adjustment per patient size (includes targeted exams where dose is matched to clinical indication); or iterative reconstruction. Contrast material: ISOVUE 370; Contrast volume: 80 ml; Contrast route: INTRAVENOUS (IV); COMPARISON: CT ANGIO CHEST PE PROTOCOL 11/30/2023 1:20 PM FINDINGS: Limitations: Mild motion artifact. Pulmonary arteries: No pulmonary embolism. Great vessels off aortic arch: Supra-aortic great vessel atherosclerosis. Aorta: Dilated ascending thoracic aorta, 4.9 cm anteroposterior. Aortic atherosclerosis. Lungs: Diffuse bilateral multilobar ground-glass opacities. Pleural spaces: Small pleural effusions. Heart: Moderate cardiomegaly. Coronary arteries: Coronary artery atherosclerosis. Prior coronary artery bypass grafting. Lymph nodes: Unremarkable. No enlarged lymph nodes. Bones/joints: Sternal sutures. Degenerative change of the spine and shoulders. Soft tissues: Unremarkable. IMPRESSION: 1. Diffuse bilateral multilobar ground-glass opacities. The differential diagnosis is extensive and includes atypical pneumonia, chronic infiltrative lung disease and pulmonary edema. 2. Small pleural effusions. 3. No pulmonary embolism. 4. Dilated ascending thoracic aorta, 4.9 cm anteroposterior. 5. Moderate cardiomegaly. 6. Additional chronic/nonemergent findings as detailed above.
[2024-02-15] MEDS: SODIUM CHLORIDE 0.9% 10ML SYR (RAD ONLY) 10 ML IV (14:05)
[2024-02-15] MEDS: IOPAMIDOL-370 (76%);100ML BOTTLE 80 ML IV (14:05)
[2024-02-15] MEDS: 0.9 % SODIUM CHLORIDE 50 ML VIAL IV (14:05)
[2024-02-15 14:07] LABS: Basophils # 0.1 K/mm3 (0-0.2); Basophils % 0.5 % (0.1-2.0); Eosinophils # 0.1 K/mm3 (0.0-0.4); Eosinophils % 0.7 % (0.1-12.0); Hematocrit 32.9 % (42.0-52.0); Hemoglobin 10.8 g/dL (14.1-18.0); Lymphocytes # 1.4 K/mm3 (0.7-4.5); Lymphocytes % 10.5 % (10-50); Mean Corpuscular HGB Conc 32.8 g/dL (31.8-35.4); Mean Corpuscular Hemoglobin 31.3 pg (27.0-31.2); Mean Corpuscular Volume 95.4 fl (80-94); Mean Platelet Volume 11.4 fl (7.4-10.4); Monocytes # 3.5 K/mm3 (0.1-1.0); Monocytes % 26.1 % (1.7-9.3); Neutrophils # 8.3 K/mm3 (1.8-7.8); Neutrophils % 62.3 % (37.0-80.0); Platelet Count 53 K/mm3 (142-424); Red Blood Count 3.44 M/mm3 (4.60-6.20); Red Cell Distribution Width 18.2 % (11.5-17.5); White Blood Count 13.3 K/mm3 (4.8-10.8)
[2024-02-15 14:08] LABS: MANUAL DIFFERENTIAL MANUAL DIFFERENTIAL (MANUAL DIFF)
--- NOTE | 2024-02-15 14:16 | ECG_ITS ---
APPROVED REPORT Exam: Resting ECG HR:61 bpm ECG Measurements Heart Rate 61 AXES QRSd 98 QRS 15 QT 424 T 162 QTc 428 Conclusion ATRIAL FIBRILLATION NONSPECIFIC ST & T-WAVE ABNORMALITY ABNORMAL ECG UNCONFIRMED REPORT Electronically signed by : ELMER RFANK, 02/17/2024 06:08:11
[2024-02-15 14:31] LABS: Eosinophils % 1 % (0-3); Lymphocytes % 24 % (10-50); Monocytes % 20 % (2-9); Neutrophils % 55 % (42-76); Ovalocytes 1+; Platelet Estimate Slight Decrease; Poikilocytosis 1+; Total Cells Counted 100
--- NOTE | 2024-02-15 15:15 | PC.NURSE ---
Notified Dr. Sosa of critical results. He asked for the oncoming MD (Benedicto) to take care of this pt while he was in another room. Gave results to Dr. Diane and asked radiology to power-share ct scans & prepares a disc
--- NOTE | 2024-02-15 15:16 | PC.NURSE ---
BERENICE CALLED [employer] AND THEY ARE ON STANDBY
--- NOTE | 2024-02-15 15:29 | PC.NURSE ---
[facility] called to verify standby, they are holding at the helipad at their facility.
[2024-02-15 15:30] LABS: HIV (1&2) Antibody Rapid NONREACTIVE (NONREACTIVE)
--- NOTE | 2024-02-15 15:40 | PC.NURSE ---
CALLED [facility] AND THEY ARE PAGING CT SURGEON [employer] AND WILL CALL BACK TO SPEAK WITH
--- NOTE | 2024-02-15 16:24 | PC.NURSE ---
[facility] called back, Dr Talbot talking to vascular surgeon.
--- NOTE | 2024-02-15 16:25 | PC.NURSE ---
Dr. Sosa s/w [facility]
--- NOTE | 2024-02-15 16:40 | PC.NURSE ---
o/p with mu-ism at this time.
--- NOTE | 2024-02-15 16:49 | PC.NURSE ---
Pt accepted to ICU at [facility]. Called [facility] for transfer, they will call back.
[2024-02-15] MEDS: FUROSEMIDE 40MG/4ML VIAL 40 MG IV (16:58)
--- NOTE | 2024-02-15 17:02 | ECG_ITS ---
APPROVED REPORT Exam: Resting ECG HR:63 bpm ECG Measurements Heart Rate 63 AXES QRSd 94 QRS 36 QT 425 T 159 QTc 431 Conclusion ATRIAL FIBRILLATION WITH ABERRANT CONDUCTION OR VENTRICULAR PREMATURE COMPLEXES NONSPECIFIC ST & T-WAVE ABNORMALITY ABNORMAL ECG UNCONFIRMED REPORT Electronically signed by : ELMER FRANK, 02/17/2024 06:07:44
--- NOTE | 2024-02-15 17:14 | PC.NURSE ---
Called [facility] got phone number to call report. they said room is being cleaned and gave number to call report. Jennifer ALEJANDRA calling report.
--- NOTE | 2024-02-15 17:18 | PC.NURSE ---
Report called to [facility] charge nurse on ICU 2A.
[2024-02-15 17:44] LABS: Reflex Lactic Add Lactic Reflex
--- NOTE | 2024-02-15 18:30 | PC.NURSE ---
BLOOD NOT COMPLETED PRIOR TO TRANSFER, PT TO [facility]
[2024-02-16 08:28] LABS: HCV Ab Non Reactive (Non Reactive)
== END 2024-02-15 18:07 | disposition short-term general hospital (02) ==
PROVIDERS: Emergency Provider Emergency Medicine; PCP Internal Medicine Adolescent Medicine
DX: I71.00 Dissection of unspecified site of aorta (principal); R06.02 Shortness of breath; R06.00 Dyspnea, unspecified; R05.9 Cough, unspecified
CPT/HCPCS: 71046; 71275; 74174; 80053; 82803; 83735; 83880; 84484; 85007; 85025; 85610; 86803; 86850; 87389; 93005; 96374; 99291; J1940; P9016; Q9967